=== PATIENT | male | born 1945 | race Caucasian/White ===

== ENCOUNTER 2016-07-05 12:57 | Emergency (ER) | payer MEDICARE, OTHER ==
[2016-07-05 13:22] VITALS: BP 139/79
[2016-07-05] MEDS ORDERED: Tetan/Diph/Pertus SYR(Tdap)* 0.5 ML SYR(BOOSTRIX) use SYR IM ONE (13:34)
--- NOTE | 2016-07-05 13:43 | UC ---
Laceration HPI - HPI Summary HPI Summary: LACERATION RIGHT INDEX FINGER X 2 HRS INJURY TO THE FINGER , GOT CUT ON A FAN + LACERATION AND BLEEDING AT THE TIP OF THE FINGER - History Of Current Complaint Chief Complaint: UCWounds Stated Complaint: RIGHT HAND POINTER FINGER INJURY Time Seen by Provider: 07/05/16 13:29 Hx Obtained From: Patient Laceration Location: Finger - RIGHT INDEX Mechanism Of Injury: Sharp Trauma Onset/Duration: Sudden Onset, Lasting Hours - 2, Still Present Severity: Moderate Aggravating Factors: Movement - Allergies/Home Medications Allergies/Adverse Reactions: Allergies Allergy/AdvReac Type Severity Reaction Status Date / Time No Known Allergies Allergy Verified 07/05/16 13:15 Home Medications: Home Medications Metoprolol Tartrate TAB* [Lopressor TAB*] 25 mg PO DAILY 07/05/16 [History Confirmed 07/05/16] Rosuvastatin (NF) [Crestor (NF)] 5 mg PO DAILY 07/05/16 [History Confirmed 07/05] PMH/Surg Hx/FS Hx/Imm Hx Previously Healthy: Yes - Surgical History Surgical History: Yes Surgery Procedure, Year, and Place: back surgery - Family History Known Family History: Negative: Diabetes - Social History Alcohol Use: Weekly Substance Use Type: None Smoking Status (MU): Never Smoked Tobacco - Immunization History Most Recent Tetanus Shot: ?2008 Review of Systems Constitutional: Negative Skin: Negative Eyes: Negative ENT: Negative Respiratory: Negative Cardiovascular: Negative All Other Systems Reviewed And Are Negative: Yes Physical Exam Triage Information Reviewed: Yes Appearance: Well-Appearing, No Pain Distress, Well-Nourished Vital Signs: Initial Vital Signs Temp 97.6 F 07/05/16 13:17 Pulse 52 07/05/16 13:17 Resp 18 07/05/16 13:17 BP 139/79 07/05/16 13:17 Pulse Ox 97 07/05/16 13:17 Vital Signs Reviewed: Yes Eye Exam: Normal Eyes: Positive: Conjunctiva Clear ENT: Positive: Normal ENT inspection, Hearing grossly normal, Pharynx normal Neck: Positive: Supple, Nontender, No Lymphadenopathy Respiratory: Positive: Chest non-tender, Lungs clear, Normal breath sounds Cardiovascular: Positive: RRR, No Murmur, Pulses Normal Skin: Positive: Other - LACERATION RIGHT FINGER DISTAL PHALANGS AT MULTIPLE SITE , CANNOT PLACE ANY SUTURE , WILL APPLY PRESSURE DRESSING TO STOP THE BLEEDING Laceration Course/Dx - Differential Dx - Laceration/Wound Provider Diagnoses: LACERATION RIGHT INDEX FINGER Discharge - Discharge Plan Condition: Stable Disposition: HOME Patient Education Materials: Finger Laceration (ED) Referrals: Keo Valle MD [Primary Care Provider] - Additional Instructions: FOLLOW UP IN 2 DAYS ON 07/07/16 AT THE URGENT CARE FOR WOUND CHECK AND DRESSING CHANGES
== END 2016-07-05 13:55 | disposition home or self-care (01) ==
LOC: UCCORT 12:57
DX: S61.210A Laceration without foreign body of right index finger without damage to nail, initial encounter (principal); W26.8XXA Contact with other sharp object(s), not elsewhere classified, initial encounter; Z23 Encounter for immunization
CPT/HCPCS: 90471; 90715; 99202; G0463

== ENCOUNTER 2016-07-07 07:24 | Emergency (ER) | payer MEDICARE, OTHER ==
[2016-07-07 07:35] VITALS: BP 130/76
--- NOTE | 2016-07-07 08:12 | UC ---
HPI Wound/Suture Re-check - HPI Summary HPI Summary: laceration right index finger x 2 days ago her for wound check and dressing changes no sutures were placed on last visit pt. has no complaints today , no bleeding, no discharge, + mild pain no fever, no chills , - History Of Current Complaint Chief Complaint: UCSkin Stated Complaint: RE CHECK FINGER WOUND Time Seen by Provider: 07/07/16 07:36 Hx Obtained From: Patient Onset/Duration: Sudden Onset, Lasting Days - 2, Still Present Severity: Moderate - Allergies/Home Medications Allergies/Adverse Reactions: Allergies Allergy/AdvReac Type Severity Reaction Status Date / Time No Known Allergies Allergy Verified 07/07/16 07:32 PMH/Surg Hx/FS Hx/Imm Hx Previously Healthy: Yes - Surgical History Surgical History: Yes Surgery Procedure, Year, and Place: back surgery - Family History Known Family History: Negative: Diabetes - Social History Alcohol Use: Weekly Substance Use Type: None Smoking Status (MU): Never Smoked Tobacco - Immunization History Most Recent Tetanus Shot: ?2008 Review of Systems Constitutional: Negative Skin: Negative Eyes: Negative ENT: Negative All Other Systems Reviewed And Are Negative: Yes Physical Exam Triage Information Reviewed: Yes Appearance: Well-Appearing, No Pain Distress, Well-Nourished Vital Signs: Initial Vital Signs Temp 98.9 F 07/07/16 07:32 Pulse 73 07/07/16 07:32 Resp 18 07/07/16 07:32 BP 130/76 07/07/16 07:32 Pulse Ox 95 07/07/16 07:32 Vital Signs Reviewed: Yes Eyes: Positive: Conjunctiva Clear ENT: Positive: Normal ENT inspection, Hearing grossly normal, Pharynx normal Neck: Positive: Supple, Nontender, No Lymphadenopathy Respiratory: Positive: Chest non-tender, Lungs clear, Normal breath sounds Cardiovascular: Positive: RRR, No Murmur, Pulses Normal Skin: Positive: Other - 1 cm laceration distal right index finger , healing well , no discharge, not bleeding, no significant erythema, + granulation tissue, mild tenderness Course/Dx - Differential Dx - Laceration/Wound Provider Diagnoses: laceration finger. wound check Discharge - Discharge Plan Condition: Stable Disposition: HOME Patient Education Materials: Acute Wound Care (ED) Referrals: Gonzalez Rodriguez MD [Primary Care Provider] - 7 Days
== END 2016-07-07 08:13 | disposition home or self-care (01) ==
LOC: UCCORT 07:24
DX: S61.310D Laceration without foreign body of right index finger with damage to nail, subsequent encounter (principal); X58.XXXD Exposure to other specified factors, subsequent encounter; Y92.9 Unspecified place or not applicable
CPT/HCPCS: 99211; G0463

== ENCOUNTER 2018-03-22 12:40 | Emergency (ER) | payer MEDICARE, OTHER ==
--- NOTE | 2018-03-22 13:35 | UC ---
Skin Complaint HPI - HPI Summary HPI Summary: 73 yo male presents with dog bite to right index finger. He tells me that he has a terrier dog at home that he has had for many years. He says that his dog is very territorial and yesterday he jumped on the bed - when pt went to get in bed, the dog snipped at his right hand and broke the skin of his right index finger. Since that time his finger has gotten red, swollen, and more painful. Unsure date of last tetanus. Denies numbness or tingling. - History of Current Complaint Time Seen by Provider: 03/22/18 13:34 Stated Complaint: DOG BITE RIGHT HAND Hx Obtained From: Patient Onset/Duration: Sudden Onset Onset Severity: Moderate Current Severity: Moderate Pain Intensity: 4 Pain Scale Used: 0-10 Numeric - Allergy/Home Medications Allergies/Adverse Reactions: Allergies Allergy/AdvReac Type Severity Reaction Status Date / Time No Known Allergies Allergy Verified 07/07/16 07:32 Home Medications: Home Medications Allopurinol TAB* [Zyloprim 100 MG TAB*] 1 each PO DAILY 03/22/18 [History Confirmed 03/22/18] Cholecalciferol TAB* [Vitamin D TAB*] 1 each PO DAILY 03/22/18 [History Confirmed 03/22/18] PMH/Surg Hx/FS Hx/Imm Hx - Additional Past Medical History Additional PMH: Gout Endocrine History: Dyslipidemia Cardiovascular History: Hypertension - Surgical History Surgical History: Yes Surgery Procedure, Year, and Place: back surgery - Family History Known Family History: Negative: Diabetes - Social History Occupation: Retired Lives: With Family Alcohol Use: Weekly Substance Use Type: None Smoking Status (MU): Never Smoked Tobacco - Immunization History Most Recent Tetanus Shot: ?2008 Review of Systems All Other Systems Reviewed And Are Negative: Yes Constitutional: Positive: Negative Skin: Positive: Other - Right index finger dog bite Respiratory: Positive: Negative Cardiovascular: Positive: Negative Neurovascular: Positive: Negative Musculoskeletal: Positive: Negative Neurological: Positive: Negative Psychological: Positive: Negative Physical Exam - Summary Physical Exam Summary: GENERAL: NAD. WDWN. No pain distress. SKIN: RIGHT INDEX FINGER: Puncture wound on dorsal aspect 2mm. Moderate edema and mild erythema. No drainage. CHEST: No accessory muscle use. Breathing comfortably and in no distress. CV: Pulses intact radial and ulnar. Cap refill <2seconds MSK: RIGHT INDEX FINGER: Mild decreased ROM at DIP and PIP due to swelling. NEURO: Alert. Sensations intact hand and all fingers. PSYCH: Age appropriate behavior. Triage Information Reviewed: Yes Vital Signs: Vital Signs: Temp Pulse Resp BP Pulse Ox 99.3 F 89 15 158/84 96 03/22/18 13:35 03/22/18 13:35 03/22/18 13:35 03/22/18 13:35 03/22/18 13:35 Vital Signs Reviewed: Yes Course/Dx - Course Course Of Treatment: tdap updated today. Rx for augmentin and advised to f/u if not improving within 2-3 days. - Diagnoses Provider Diagnosis: Infected dog bite of right index finger Discharge - Sign-Out/Discharge Documenting (check all that apply): Patient Departure All imaging exams completed and their final reports reviewed: No Studies - Discharge Plan Condition: Stable Disposition: HOME Prescriptions: Amoxicillin/Clavulanate TAB* [Augmentin TAB 875*] 875 mg PO BID #14 tab Patient Education Materials: Animal Bite (ED) Referrals: Enrico Montano MD [Primary Care Provider] - Additional Instructions: If you develop a fever, shortness of breath, chest pain, new or worsening symptoms - please call your PCP or go to the ED. Your blood pressure was high at todays visit. Please see your primary provider within 4 weeks for recheck and re-evaluation. Apply ice to your finger to reduce pain and swelling - Billing Disposition and Condition Condition: STABLE Disposition: Home
[2018-03-22 13:41] VITALS: BP 158/84
[2018-03-22] MEDS: Tetan/Diph/Pertus SYR(Tdap)* 0.5 ML SYR(BOOSTRIX) use SYR IM ONE (13:48)
== END 2018-03-22 13:49 | disposition home or self-care (01) ==
LOC: UCCORT 12:40
DX: S61.250A Open bite of right index finger without damage to nail, initial encounter (principal); L08.9 Local infection of the skin and subcutaneous tissue, unspecified; M10.9 Gout, unspecified; I10 Essential (primary) hypertension; Z79.899 Other long term (current) drug therapy; W54.0XXA Bitten by dog, initial encounter; Y92.008 Other place in unspecified non-institutional (private) residence as the place of occurrence of the external cause
CPT/HCPCS: 90715; 96372; 99212; G0463

== ENCOUNTER 2019-01-17 08:51 | Inpatient (IN) | payer MEDICARE, OTHER ==
[~2019-01-17 08:51] MED LIST: Buffered Lidocaine 1% SYRIN* 1 ML/SYRINGE INTRADERM ONE; Dexamethasone IV* 4 MG/ML 1 ML (4 MG) IV SLOW PU ONE; Dexamethasone IV* 4 MG/ML 1 ML (4 MG) ONE; Famotidine IV* 10 MG/ML 2 ML (20 mg) IV ONE; Famotidine IV* 10 MG/ML 2 ML (20 mg) ONE; Lactated Ringers 1000 ML Bag* 1,000 ML IV SCH; ceFAZolin 2 GM PREMIX in ORs 2 GM/50 ML BAG ONE
[2019-01-17] MEDS ORDERED: Bacitracin INJECTION* 50,000 UNITS ONE (10:51)
[2019-01-17] MEDS ORDERED: Lidocaine 1% w EPI 1:200,000* SDV 30 ML VIAL ONE (10:51)
[2019-01-17] MEDS ORDERED: Midazolam* 1 MG/ML 5 ML VIAL (5 MG) ONE (11:08)
[2019-01-17] MEDS ORDERED: fentaNYL* 50 MCG/ML 2 ML VIAL (100 MCG VIAL) ONE ×4 (11:08→16:17)
[2019-01-17] MEDS ORDERED: Remifentanil* 2 MG VIAL ONE ×2 (11:08→13:52)
[2019-01-17] MEDS ORDERED: Propofol* 10 MG/ML 20 ML BTL ONE (11:08)
[2019-01-17] MEDS ORDERED: Lidocaine 2% PF * 5 ML VIAL ONE (11:09)
[2019-01-17] MEDS ORDERED: oxyCODONE/Acetamin 5/325 MG* TAB PO PRN (11:28)
[2019-01-17] MEDS ORDERED: Naloxone* 0.4 MG/ML 1 ML VIAL IV PRN (11:28)
[2019-01-17] MEDS ORDERED: fentaNYL* 50 MCG/ML 2 ML VIAL (100 MCG VIAL) IV PRN (11:28)
[2019-01-17] MEDS ORDERED: HYDROcodone/ACETAMIN 5-325 MG* 1 TAB PO PRN ×3 (11:28→16:56)
[2019-01-17] MEDS ORDERED: DiMENhydriNATE IV* 50 MG/ML VIAL IV PUSH PRN (11:28)
[2019-01-17] MEDS ORDERED: Morphine 4 MG/ML VIAL (1 ml) 4 MG/ML VIAL IV PRN (11:28)
[2019-01-17] MEDS ORDERED: Rocuronium* 10 MG/ML VIAL ONE ×2 (11:33→13:23)
[2019-01-17] MEDS ORDERED: Propofol* 500 MG/50 ML BTL ONE (11:38)
[2019-01-17] MEDS ORDERED: Dexamethasone IV* 4 MG/ML 1 ML (4 MG) ONE (12:08)
[2019-01-17] MEDS ORDERED: Propofol* 1,500 MG/150 ML BTL ONE (12:11)
[2019-01-17] MEDS ORDERED: EPHEDrine (Pressors)* 50 MG/ML VIAL ONE (12:21)
[2019-01-17] MEDS ORDERED: Propofol* 1,000 MG/100 ML BTL ONE (15:09)
[2019-01-17] MEDS ORDERED: ceFAZolin 2 GM in NS PREMIX(*) 2 GM/100 ML BAG IVPB ONE (15:42)
[2019-01-17] MEDS ORDERED: Ondansetron INJ* 2 MG/ML VIAL ONE (15:51)
[2019-01-17] MEDS ORDERED: Acetaminophen TAB* 325 MG PO PRN (16:56)
[2019-01-17] MEDS ORDERED: Ondansetron INJ* 2 MG/ML VIAL IV PRN (16:56)
[2019-01-17] MEDS ORDERED: Magnesium Hydroxide LIQ* 30 ML UDC PO PRN (16:56)
[2019-01-17] MEDS ORDERED: Metoprolol Tartrate IV* 1 MG/ML 5 ML VIAL ONE (17:12)
[2019-01-17] MEDS ORDERED: Metoprolol Tartrate IV* 1 MG/ML 5 ML VIAL IV ONE (17:13)
[2019-01-17] MEDS ORDERED: Labetalol IV* 5 MG/ML 20 ML VIAL ONE (17:28)
[2019-01-17] MEDS: Labetalol IV* 5 MG/ML 20 ML VIAL IV PUSH PRN ×5 (17:36→18:26)
--- NOTE | 2019-01-17 22:52 | CONS ---
CC: Dr. Enrico Montano; Dr. Monet * CONSULTATION REPORT: DATE OF CONSULT: 01/17/19 TIME OF EVALUATION: 6:30 p.m. PRIMARY CARE PROVIDER: Dr. Enrico Montano. REQUESTING PHYSICIAN: Dr. Monet. HISTORY OF PRESENT ILLNESS: Mr. Kramer is a 74-year-old male with a past medical history of cervical spondylosis, hypertension, hyperlipidemia, gout, vitamin D deficiency, rheumatoid arthritis, who was referred to Dr. Monet by urology due to cervical myelopathy. He had back surgery in 2007 complicated with left foot drop and over the past year, he has experienced loss of strength and sensations on his left upper extremity. He was seen in consultation by Dr. Monet and his recommendation was for surgical repair in the way of an anterior cervical decompression with fusion of C5-6, C6-7, possible corpectomy of C5-6 with interbody cages. The patient was seen by his primary care provider and deemed stable for procedure and he was also referred to Cardiology prior to surgery for evaluation. He was seen by Dr. Sue and their impression was that the patient could proceed to cervical spinal surgery with low risk, and there was no indication for further testing or changes in medication. As per Dr. Monet, the patient did well during surgery and he requests that the hospitalist service follow for management of comorbidities. At the time of my evaluation, the patient was feeling well. He said that his pain was well controlled and he was able to move all 4 extremities. PAST MEDICAL HISTORY: 1. Hypertension. 2. Cervical spondylosis. 3. Hyperlipidemia. 4. Gout. 5. Vitamin D deficiency. 6. Rheumatoid arthritis. MEDICATIONS: 1. Allopurinol 100 mg p.o. daily. 2. Aspirin 81 mg p.o. daily. 3. Atorvastatin 40 mg p.o. daily. 4. Cholecalciferol 5000 units p.o. daily. 5. Losartan/hydrochlorothiazide 100/25 one tablet p.o. daily. 6. Metoprolol succinate 100 mg p.o. daily. ALLERGIES: No known drug allergies. FAMILY HISTORY: The patient states that his parents have . He does not remember exactly why. 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 Denies history of tobacco, alcohol, or drug use. Surrogate decision maker is his , Yanelis Kramer, phone number is [phone]. REVIEW OF SYSTEMS: A 14-point review of systems was performed and all the pertinent negatives and positive as per HPI. PHYSICAL EXAMINATION: General: The patient is an elderly gentleman lying in bed in no acute distress. Vital Signs: Temperature 97.4, heart rate is 96, respiratory rate 18, oxygen saturation 94% on room air, blood pressure is 151/ 83. HEENT: Pupils are equal. Moist mucous membranes. The patient has a Ravalli J collar in place. CVS: Normal S1, S2. Regular rate and rhythm. Chest: Breath sounds present bilaterally with no added sounds. Abdomen: Soft. Bowel sounds are present. Extremities: No edema. Neuro: The patient is alert and oriented x3. He is able to move all 4 extremities. He has a known left foot drop and this is unchanged. Sensation appears to be improved but the patient is still recovering from anesthesia during my evaluation. ASSESSMENT AND PLAN: Mr. Kramer is a 74-year-old male with a past medical history of hypertension, gout, hyperlipidemia, vitamin D deficiency, rheumatoid arthritis with cervical spondylosis, and spine myelopathy, who presented for an elective anterior cervical decompression that was performed by Dr. Monet. 1. Status post anterior cervical decompression. Postop management will be as per Neurosurgery. 2. Hypertension. His blood pressure is controlled. We will continue losartan , metoprolol and hydrochlorothiazide. 3. Hyperlipidemia. We will continue atorvastatin. 4. Vitamin D deficiency. We will continue cholecalciferol. 5. Gout. We will continue allopurinol. 6. DVT prophylaxis. The patient will have SCDs for now and we will resume his aspirin when okayed by Neurosurgery. 7. Code status is full. TIME SPENT: Approximately 45 minutes was spent with the patient interview, medical records review, and physical examination with admission. More than half of this time was spent [id number] with the patient in coordination of care. [id number]/[facility] #: [id number] VANDANA
[2019-01-18] MEDS ORDERED: NS 0.9% 500 ML* 500 ML IV ONE (00:25)
--- NOTE | 2019-01-18 00:58 | OP ---
DATE OF OPERATION: 01/17/19 - ROOM #351 DATE OF : 43 SURGEON: Conor Monet MD CURRICULUM WRITER: JOB Pitt. The case was done with the assistance of JOB because of the complexity of the case. ANESTHESIA: General. PRE-OP DIAGNOSES: 1. Degenerative disk disease. 2. Cervical spondylotic myelopathy. POST-OP DIAGNOSES: 1. Degenerative disk disease. 2. Cervical spondylotic myelopathy. OPERATIVE PROCEDURE: The patient underwent anterior cervical corpectomy at C6 with C5-C7 anterior arthrodesis with PEEK interbody cage, DBX, local bone graft , plate and screws with intraoperative monitoring. ESTIMATED BLOOD LOSS: 30 cc. COMPLICATIONS: None. SUMMARY: The patient is a very pleasant 74-year-old gentleman with cervical spondylotic myelopathy with MRI findings consistent with multilevel stenosis, more profound at C5-C6 and C6-7. He was offered the option of surgical intervention. After explaining the expectations, limitations, and possible complications of the procedure to the patient and his ; with complications including but not limited to bleeding, infection, risk of injury to adjacent structures, coma, paralysis, , need for additional procedures, anesthesia risks, risk of stroke, blindness, cancer, instability, hardware failure, adjacent level disease, pseudoarthrosis, spinal fluid leak, recurrent laryngeal nerve injury, injury to the esophagus or the trachea, need for tracheostomy or gastrostomy, need for prolonged ICU stay, anesthesia risks, Henrry syndrome, DVT , postoperative hematoma formation, need for additional procedures, the patient was agreeable to proceed with surgery and informed consent was obtained. The patient understood that he may require additional procedure in the future, possibly in the form of posterior C2 through T2 arthrodesis with decompression. The patient understood that his condition may not improve and in fact may get worse after surgery and that he may need to have additional procedures in the future. He also understood that the operative plan will be modified according to the intraoperative findings and conditions and that the case may be abandoned or done in more than 1 stages. The patient understood that he may require prolonged ICU stay, prolonged rehabilitation, and prolonged hospitalization. DESCRIPTION OF PROCEDURE: The patient was brought to the operating room and was placed under general anesthesia by the anesthesia team. He was carefully positioned supine on the Salbador table and all bony prominences were meticulously padded. His skin was prepped and draped in the standard fashion. After appropriate surgical pause and patient identification, a small right transverse paramedian incision was marked on the skin with assistance of intraoperative fluoroscopic imaging at the level of approximately C6. The skin was infiltrated with local anesthetic and a #10 surgical blade was used to anesthetize the skin. The incision was carried down to the subcutaneous tissue with Bovie cautery and the platysma was gently undermined with tenotomy scissors. Self-retaining retractors were introduced into the field. The platysma was then gently elevated and divided with tenotomy scissors and undermined. Self-retaining retractors were introduced further into the field. The plane between the medial border of the sternocleidomastoid and the medial structures was developed with sharp and blunt dissection. After identifying the prevertebral fascia and exposing of the anterior part of the spine, intraoperative fluoroscopic imaging was used to confirm the appropriate surgical levels. Self-retaining retractors were introduced further into the field and [place] pins were inserted into the C5, C6, and C7 vertebral body. Diskectomy at C5-C6 and C6-7 was performed after incising the annulus fibrosis with a #15 surgical blade. This was carried out with the use of pituitary rongeurs, Kerrison punches, and high-speed drill. It was noted that the patient had significant stenosis and because of the amount of vertebral body of C6 needed to be resected as well as the extent of the compression, it was decided to perform a corpectomy at C6 as discussed preoperatively. The corpectomy was carried out with series of [place] rongeurs, Kerrison punches, and high-speed drill. Significant adherence of the posterior wall of the vertebral body onto the posterior longitudinal ligament was found and it was gently dissected free. Intraoperative monitoring did not detect any changes. Then after extensive diskectomy was performed and extensive foraminotomies, a 22 mm corpectomy cage was prepared and was filled with locally harvesting bone graft during the diskectomy and corpectomy part of the procedure as well as DBX putty. The corpectomy cage was inserted and secured in place with an anterior cervical plate Zevo from [employer] was used. After fluoroscopic imaging was obtained, excellent placement of hardware was confirmed. A Darwin drain was left in place, which was tunneled through a separate stab wound incision. After meticulous hemostasis and copious irrigation, the self- retaining retractors were removed and the wound was closed by layers with 0- interrupted Vicryl sutures to approximate the platysma and then inverted, interrupted 2-0 Vicryl sutures to approximate the subcutaneous tissue. At the end of the procedure all counts were reported to be correct. The patient remained hemodynamically stable throughout the case. The skin was covered with Dermabond . At the end of the procedure, all counts were reported to be correct. The patient remained hemodynamically stable throughout the case. Intraoperative electrophysiological monitoring remained stable throughout the case. The patient was then extubated and was transferred to the Recovery in excellent condition. [id number]/[facility] #: [id number] MTDD
--- NOTE | 2019-01-18 08:32 | PN ---
Progress Note - Progress Note Date of Service: 01/18/19 SOAP: Subjective: [] No events ON. Tolerated procedure well yesterday. Not out of bed yet. Voids. Tolerates PO well. Wants to go home. Feels very well Objective: []VSS, Afebrile MJ Wound s,c,d Drain output noted. Drain was removed. Catheter appeared to be intact. No complications. Patient tolerated the procedure well. AAOx3, TYRONE, CN II-XII grossly intact Motor 5/5 all extremities except Lt foot drop, present preop. Sensory grossly intact to light touch, except decreased sensation LLE bellow knee, present preop. Assessment: []74 yom POD#1 Anterior cervical corpectomy C6 with C5-7 arthrodesis. Plan: []Monitor VS, Neurochecks Encourage ambulation Keep MJ collar on. C spine XR this am. DC planning today. Full instructions were given. No lifting, No bending, No driving. Keep incision dry. May shower in two days. No baths, Appreciate IM care. Mukund Monet MD
[2019-01-18] MEDS ORDERED: Allopurinol TAB* 100 MG PO SCH (09:00)
[2019-01-18] MEDS ORDERED: Atorvastatin* 40 MG TAB PO SCH (09:00)
[2019-01-18] MEDS ORDERED: Cholecalciferol TAB* 1000 UNITS PO SCH (09:00)
[2019-01-18] MEDS ORDERED: Metoprolol Succinate XL TAB* 100 MG PO SCH (09:00)
[2019-01-18] MEDS ORDERED: Losartan TAB* 25 MG PO SCH (09:00)
[2019-01-18] MEDS ORDERED: Hydrochlorothiazide TAB* 25 MG PO SCH (09:00)
[2019-01-18 17:38] VITALS: BP 152/85
--- NOTE | 2019-01-19 18:37 | DS ---
CC: Dr. Enrico Montano; Dr. Conor Monet * DISCHARGE SUMMARY: DATE OF ADMISSION: 01/17/19 DATE OF DISCHARGE: 01/18/19 PRIMARY CARE PROVIDER: Dr. Enrico Montano. MY ATTENDING WHILE IN THE HOSPITAL: Dr. Radha Cruz.* (DICTATED BY MIKE BUCIO) NEUROSURGEON: Dr. Conor Monet. PRIMARY DISCHARGE DIAGNOSIS: Cervical myelopathy due to cervical spinal stenosis, status post cervical decompression and fusion with corpectomy and interbody cages. SECONDARY DISCHARGE DIAGNOSES: 1. History of footdrop. 2. Hypertension. 3. Hyperlipidemia. 4. Gout. 5. Vitamin D deficiency. 6. Rheumatoid arthritis. STUDIES DONE WHILE IN THE HOSPITAL: Cervical spine x-ray from 01/18/19 read as postoperative changes related to C5-C7 ACDF, multilevel spondylosis. This represented appropriate alignment per Dr. Monet' impression. MEDICATIONS AT DISCHARGE: 1. Allopurinol 100 mg p.o. daily. 2. Losartan/hydrochlorothiazide 100/25 one tab p.o. daily. 3. Vitamin D3 5000 units p.o. daily. 4. Metoprolol succinate 100 mg p.o. daily. 5. Atorvastatin 40 mg p.o. daily. 6. Aspirin 81 mg p.o. daily. 7. Tylenol 650 mg p.o. q.4 hours as needed. 8. Dorothy 5/325 one tab p.o. q.4 hours as needed for moderate pain. 9. Dorothy 5/325 two tabs p.o. q.4 hours as needed for severe pain. HOSPITAL COURSE: This is a brief summary of the patient's presentation. For more details, please see the history and physical from Dr. Monet on as well as the consultation from Dr. Hetal Aleman on 01/17/19. In brief, the patient is a 74-year-old male with past medical history significant for the above, who presented for an elective surgical repair of his cervical spinal stenosis on 01/17/19, which was undertaken by Dr. Monet and went well without issues. The patient had minimal pain after the surgery. The patient had initially hypertension in the PACU, but this resolved with reintroduction of his blood pressure medications. The patient needed minimal pain medications. The patient was able to ambulate around the unit with only his previous footdrop and minimal pain and was able to eat regular diet and urinate without difficulty. The patient said he felt very well, he felt the surgery had gone well and was stable and amenable for discharge to home on 01/18/19. PHYSICAL EXAM ON THE DAY OF DISCHARGE: General: The patient is a 74-year-old male, who appears stated age and sitting comfortably in bed, in no acute distress. Vital Signs: Temperature 98.4, pulse rate 73, respiratory rate 16, oxygen saturation 94% on room air, blood pressure 152/85. HEENT: Head normocephalic, atraumatic. Sclerae anicteric. No conjunctival injection. Nasal mucosa moist. Oral mucosa moist. No pharyngeal erythema, discharge, or exudate. Neck: Supple, nontender. No lymphadenopathy. No carotid bruits auscultated. No JVD. Cardiac: Regular rate and rhythm. No clicks, murmurs, gallops, or rubs. Pulses are 2+ in the bilateral dorsalis pedis, posterior tibialis, and radial areas. Respiratory: Clear to auscultation bilaterally. No wheezes, rales, or rhonchi. Good air exchange bilaterally. Abdomen: Soft, nontender, nondistended. Bowel sounds present and normoactive in all 4 quadrants. No hepatosplenomegaly. No abdominal bruits auscultated. No hepatojugular reflux. Genitourinary: No suprapubic or CVA tenderness. Skin: Clean, dry, and intact. No rash. Surgical incision covered with dressing and not visualized. Neuro: Cranial nerves II through XII intact. His strength is preserved in bilateral upper extremities. Weakness with dorsiflexion on the left foot with muscle atrophy compared to the right foot. Abnormal foot slapping gait. No other focal deficits. Alert and oriented x3. Psychiatric: Pleasant and cooperative. DISCHARGE PLAN BY PROBLEM: 1. Cervical spinal stenosis, status post anterior spinal fusion. The patient has no obvious complications from surgery. The patient's pain is well controlled on the above regimen. The patient is feeling well. The patient is ambulating well. The patient will be maintained in his [place] collar until he is cleared by Neurosurgery. The patient should avoid bending, lifting, driving until cleared by his neurosurgeon. The patient should follow up with neurosurgeon in 7 to 10 days. The patient can shower in 2 days and take off the dressing at that time. The patient should avoid bath and try to keep the incision dry. The patient should return to the hospital for loss of bowel or bladder control, severe weakness, or other alarming symptoms. 2. Hypertension. The patient is currently normotensive. Continue the patient' s home regimen with hydrochlorothiazide, lisinopril, and metoprolol. 3. Gout. Continue the patient's allopurinol. 4. Hyperlipidemia. Continue the patient's Lipitor and aspirin for primary prevention. DISPOSITION: Home. CONDITION: Stable. TIME SPENT: Approximately 45 minutes was spent on the discharge of this patient , 30 of which was spent [id number] with the patient obtaining history and physical and discussing treatment plan. MIKE BUCIO [id number]/[place] #: [id number] VANDANA
== END 2019-01-18 17:30 | disposition home or self-care (01) | DRG 472 ==
LOC: OR 08:51 → SSU 16:57
PROVIDERS: ADMIT Neurological Surgery; ATTEND Internal Medicine
PROC: 0RB30ZZ Excision of Cervical Vertebral Disc, Open Approach (ICD-10-PCS; 2019-01-17)
PROC: 4A11X4G Monitoring of Peripheral Nervous Electrical Activity, Intraoperative, External Approach (ICD-10-PCS; 2019-01-17)
PROC: 0RG20A0 Fusion of 2 or more Cervical Vertebral Joints with Interbody Fusion Device, Anterior Approach, Anterior Column, Open Approach (ICD-10-PCS; principal; 2019-01-17 10:45)
DX: M48.02 Spinal stenosis, cervical region (principal); M47.12 Other spondylosis with myelopathy, cervical region; I10 Essential (primary) hypertension; E78.00 Pure hypercholesterolemia, unspecified; M21.372 Foot drop, left foot; M43.13 Spondylolisthesis, cervicothoracic region; E78.5 Hyperlipidemia, unspecified; G62.9 Polyneuropathy, unspecified; M10.9 Gout, unspecified; M06.9 Rheumatoid arthritis, unspecified; L25.9 Unspecified contact dermatitis, unspecified cause; I44.0 Atrioventricular block, first degree; E55.9 Vitamin D deficiency, unspecified; Z79.82 Long term (current) use of aspirin
CPT/HCPCS: 72040; 76000; A9270-GY; C1713; C1776; J0690; J1100; J2001; J2250; J2405; J2704; J3010; J3490

== ENCOUNTER 2019-04-12 09:05 | Emergency (ER) | payer MEDICARE, OTHER ==
--- OUTSIDE RECORDS SUMMARY | 2019-04-12 09:15 | XMS REPORT | Continuity of Care Document ---
:1945 External Reference #:[id number] Author Name Conor Monet MD (transmitted by agent of provider Deborah Daly ) Address [address] [place] [address] Care Team Providers Name Role Phone Enrico Montano MD - Family Medicine Care Team Information Critical Care Nurse Specialist [phone] Problems Active Problems Provider Date Skin sensation disturbance Ronald Kingsley M.D. Onset: 10/25/2018 Neck pain Ronald Kingsley M.D. Onset: 10/25/2018 Foot-drop Ronald Kingsley M.D. Onset: 10/25/2018 Social History Type Date Description Comments Sex Unknown ETOH Use Currently consumes alcohol Tobacco Use Start: Unknown Patient has never smoked Recreational Drug Use Never Used Drugs Smoking Status Reviewed: 02/20/19 Patient has never smoked Exercise Type/Frequency Exercises regularly Allergies, Adverse Reactions, Alerts Description No Known Drug Allergies Medications Active Medications SIG Qnty Indications Ordering Provider Date Ankle Foot Orthosis When out of bed as M47.12 Conor 01/26/2019 tolerated MD Chiki MJ Collar When out of bed M54.2 Vaseh 11/07/2018 MD Chiki Allopurinol 1 tab by mouth Unknown three times a day before meals [id number]-[id number] Ethyl Take One Capsule Unknown [place] By Mouth Twice A 1gm Capsules Day Metoprolol Succinate Take One Tablet By Unknown ER Mouth Every Day 100mg Tablets ER 24HR Atorvastatin Calcium Take One Tablet By Unknown Mouth Every Day as 40mg Tablets Directed Losartan 1 by mouth every Unknown Potassium/Hydrochloro day thiazide 100-25mg Tablets Medications Administered in Office Medication SIG Qnty Indications Ordering Provider Date Depomedrol 80MG Perri Granados M.D. 07/05/2013 Injection Immunizations Description No Information Available Vital Signs Date Vital Result Comment 02/20/2019 8:31am Height 69 inches 5'9" Weight 197.00 lb Heart Rate 60 /min BP Systolic 140 mmHg BP Diastolic 78 mmHg Body Temperature 97.0 F Pain Level 2 BMI (Body Mass Index) 29.1 kg/m2 01/26/2019 8:52am Height 69 inches 5'9" Weight 197.00 lb BP Systolic 122 mmHg BP Diastolic 84 mmHg BMI (Body Mass Index) 29.1 kg/m2 Results Test Acquired Date Facility Test Result H/L Range Note CBC No Diff 01/04/2019 [facility] White Blood 8.7 10^3/uL Normal 3.5-10.[address] [place] [address] [phone] Red Blood Count 4.79 10^6/uL Normal 4.18-5.48 Hemoglobin 15.1 g/dL Normal 14.0-18.0 Hematocrit 44 % Normal 42-52 Mean Corpuscular Volume 91 fL Normal 80-94 Mean Corpuscular Hemoglobin 32 pg High 27-31 Mean Corpuscular HGB Conc 35 g/dL Normal 31-36 Red Cell Distribution Width 13 % Normal 10-15 Platelet Count 205 10^3/uL Normal 150-450 Mean Platelet Volume 8.1 fL Normal 7.4-10.4 Basic Metabolic 01/04/2019 [facility] Sodium 134 mmol/L Low 135-[address] [place] [address] [phone] Potassium 4.3 mmol/L Normal 3.5-5.0 Chloride 101 mmol/L Normal 101-111 Co2 Carbon Dioxide 25 mmol/L Normal 22-32 Anion Gap 8 mmol/L Normal 2-11 Glucose 103 mg/dL High 70-100 Blood Urea Nitrogen 19 mg/dL Normal 6-24 Creatinine 1.13 mg/dL Normal 0.67-1.17 BUN/Creatinine Ratio 16.8 Normal 8-20 Calcium 9.6 mg/dL Normal 8.6-10.3 Egfr Non- 63.3 >60 Egfr 76.5 >60 1 Inr/Protime 01/04/2019 [facility] Inr 0.98 Normal 0.82-1.[address] [place] [address] [phone] Laboratory test 01/04/2019 [facility] Activated 31.9 Normal 26.0-38.[address] [place] [address] Thrombo Time [phone] Urinalysis 01/04/2019 [facility] Urine Color Straw Profile [address] [place] [address] [phone] Urine Appearance Clear Urine Specific [place] 1.005 Low 1.010-1.030 Urine pH 7.0 Normal 5-9 Urine Urobilinogen Negative Negative Urine Ketones Negative Negative Urine Protein Negative Negative Urine Leukocytes Negative Negative Urine Blood Negative Negative Urine Nitrite Negative Negative Urine Bilirubin Negative Negative Urine Glucose Negative Negative Type & Screen 01/04/2019 [facility] Patient Blood Type A Positive [address] [place] [address] [phone] Antibody Screen NEGATIVE 1 Because ethnic data is not always readily available, this report includes an eGFR for both -Americans and non- Americans. The National Kidney Disease Education Program (NKDEP) does not endorse the use of the MDRD equation for patients that are not between the ages of 18 and 70, are , have extremes of body size, muscle mass, or nutritional status, or are non- or non-. According to the National Kidney Foundation, irrespective of diagnosis, the stage of the disease is based on the level of kidney function: Stage Description GFR(mL/min/1.73 m(2)) 1 Kidney damage with normal or decreased GFR 90 2 Kidney damage with mild decrease in GFR 60-89 3 Moderate decrease in GFR 30-59 4 Severe decrease in GFR 15-29 5 Kidney failure <15 (or dialysis) 2 Standard intensity warfarin therapeutic range: 2.0-3.0 High intensity warfarin therapeutic range: 2.5-3.5 Procedures Date Code Description Status 01/17/2019 12003 Vertebral Corpectomy;Cervical, Single Segment Completed 01/17/2019 87490 Insertion Intervertebral Biomechanic Device Each Completed Contiguous Defec 01/17/2019 31451 Anterior Instrumentation 2-3 Vertebral Segments Completed 01/17/2019 85943 Arthrodesis W/M Completed 01/17/2019 44049 Arthrodesis, Anterior Cervical C2 And Below Completed 01/17/2019 Autograft For Spine Surgery (Incls Harvesting The Graft) Completed 01/17/2019 43291 Allograft For Spine Surgery, Morselized Completed 01/04/2019 33204 EKG, Interpretation Only Completed Medical Devices Description No Information Available Encounters Type Date Location Provider Dx Diagnosis Office Visit 01/18/2019 [facility] Michael Germain, M47.12 Other spondylosis 1:21p Assoc,santi [place] with myelopathy, Hospitalists cervical region I10 Essential (primary) hypertension E78.5 Hyperlipidemia, unspecified M10.9 Gout, unspecified Office Visit 01/17/2019 1:20p [facility] Hetal I10 Essential Assoc,santi Mendez M.D. (primary) Hospitalists hypertension E78.5 Hyperlipidemia, unspecified E55.9 Vitamin D deficiency, unspecified M10.9 Gout, unspecified Office Visit 11/21/2018 8:30a [place] Jian M54.2 Cervicalgia [facility]anie Mckeon N.P. M21.372 Foot drop, left foot M47.12 Other spondylosis with myelopathy, cervical region Office Visit 11/07/2018 11:30a [facility] M54.2 Cervical[facility] Monet MD M21.372 Foot drop, left foot M47.12 Other spondylosis with myelopathy, cervical region Office Visit 10/25/2018 [place] Ronald Kingsley, R20.2 Paresthesia of 9:00a Neurologic M.D. skin Services Of [facility] M62.81 Muscle weakness (generalized) M54.2 Cervicalgia M21.372 Foot drop, left foot Assessments Date Code Description Provider 02/20/2019 Z48.89 Encounter for other specified Conor Monet MD surgical aftercare 02/20/2019 M47.12 Other spondylosis with myelopathy, Conor Monet MD cervical region 01/26/2019 Z48.89 Encounter for other specified Conor Monet MD surgical aftercare 01/18/2019 M47.12 Other spondylosis with myelopathy, MIKE Stringer cervical region 01/18/2019 I10 Essential (primary) hypertension MIKE Stringer 01/18/2019 E78.5 Hyperlipidemia, unspecified MIKE Stringer 01/18/2019 M10.9 Gout, unspecified MIKE Stringer 01/17/2019 M48.02 Spinal stenosis, cervical region Conor Monet MD 01/17/2019 M47.12 Other spondylosis with myelopathy, Conor Monet MD cervical region 01/17/2019 I10 Essential (primary) hypertension Hetal Mendez M.D. 01/17/2019 E78.5 Hyperlipidemia, unspecified Hetal Mendez M.D. 01/17/2019 E55.9 Vitamin D deficiency, unspecified Hetal Mendez M.D. 01/17/2019 M10.9 Gout, unspecified Hetal Mendez M.D. 01/04/2019 R94.31 Abnormal electrocardiogram [ECG] Phill Beyer M.D., FACC, [EKG] [facility] 12/31/2018 M47.12 Other spondylosis with myelopathy, Conor Monet MD [facility] region 12/31/2018 M54.2 Cervicalgia Conor Monet MD 12/31/2018 M21.372 Foot drop, left foot Conor Monet MD 11/22/2018 M47.12 Other spondylosis with myelopathy, Conor Monet MD [facility] region 11/22/2018 M54.2 Cervicalgia Conor Monet MD 11/22/2018 M21.372 Foot drop, left foot Conor Monet MD 11/21/2018 M54.2 Cervicalgia Jian Mckeon, N.P. 11/21/2018 M21.372 Foot drop, left foot Jian Mckeon N.P. 11/21/2018 M47.12 Other spondylosis with myelopathy, Jian Mckeon N.P. cervical region 11/07/2018 M54.2 Cervicalgia Conor Monet MD 11/07/2018 M21.372 Foot drop, left foot Conor Monet MD 11/07/2018 M47.12 Other spondylosis with myelopathy, Conor Monet MD cervical region 10/25/2018 R20.2 Paresthesia of skin Ronald Kingsley M.D. 10/25/2018 M62.81 Muscle weakness (generalized) Ronald Kingsley M.D. 10/25/2018 M54.2 Cervicalgia Ronald Kingsley M.D. 10/25/2018 M21.372 Foot drop, left foot Ronald Kingsley M.D. Plan of Treatment Future Appointment(s):06/26/2019 8:00 am - Ronald Kingsley M.D. at [facility]04/19/2019 10:30 am - Conor Monet MD at Neurosurgery [facility]02/20/2019 - Conor Monet MDZ48.89 Encounter for other specified surgical xdcauqafzF77.12 Other spondylosis with myelopathy, cervical regionFollow up:RV in 2 months . Please obtain AP and Lateral XR today . Please obtain F/E views in 2 months Functional Status Description No Information Available Mental Status Description No Information Available Referrals Refer to Reason for Referral Status Appt Date Conor Monet MD Sent 11/07/[address] [place] [id number] [phone]
--- OUTSIDE RECORDS SUMMARY | 2019-04-12 09:15 | XMS REPORT | Continuity of Care Document ---
:1945 External Reference #:[id number] Author Name Enrico Montano MD Address [address] [place] [id number] Care Team Providers Name Role Phone Enrico Montano MD - Family Medicine Care Team Information Network Manager Problems Active Problems Provider Date Essential hypertension Lisseth La [facility] Onset: 10/02/2015 Hyperlipidemia Arlet Ruth M.D. Onset: 03/23/2016 Gout Arlet Ruth M.D. Onset: 03/23/2016 Taking medication Arlet Ruth M.D. Onset: 03/23/2016 Screening for malignant neoplasm of Arlet Ruth M.D. Onset: 03/23/2016 prostate Encounter for screening for Arlet Ruth M.D. Onset: 03/23/2016 nutritional disorder Vitamin D deficiency Arlet Ruth M.D. Onset: 04/08/2016 Immunization Arlet Ruth M.D. Onset: 10/27/2016 Contact dermatitis Arlet Ruth M.D. Onset: 10/27/2016 Cramp in lower leg associated with Arlet Ruth M.D. Onset: 07/19/2017 rest Low back pain Arlet Ruth M.D. Onset: 12/01/2017 First degree atrioventricular block Gregory Sue M.D., Onset: 2018 [facility] Encounter for other preprocedural Gregory Sue M.D., Onset: 2018 examination FACC Preoperative cardiovascular Gregory Sue M.D., Onset: 12/25/2018 examination [facility] Social History Type Date Description Comments Sex Unknown Tobacco Use Start: Unknown Never Smoked Cigarettes Smoking Status Reviewed: 04/08/19 Never Smoked Cigarettes ETOH Use consumes 2 six packs per week Tobacco Use Start: Unknown Patient denies history of smoking Recreational Drug Use Denies Drug Use Allergies, Adverse Reactions, Alerts Description No Known Drug Allergies Medications Active Medications SIG Qnty Indications Ordering Date Provider Losartan 1 by mouth every 90tabs Gregory Sue 12/25/2018 Potassium/Hydrochloro sue Smith M.D., [facility] thiazide 100-25mg Tablets Allopurinol 2 by mouth every 270tabs Enrico Montano MD 05/09/2018 100mg day Tablets Atorvastatin Calcium 1 tab by mouth 90tabs Enrioc Montano MD 05/08/2018 every day as 40mg Tablets directed Metoprolol Succinate 1 by mouth every 90tabs Enrico Montano MD 08/27/2015 ER day 100mg Tablets ER 24HR Aspir-81 1 by mouth every 90tabs Zachary Izaguirre, 08/27/2015 81mg Tablets day DO Vitamin D3 1 by mouth every Unknown 1000Unit day Capsules Immunizations CPT Code Status Date Vaccine Lot # [id number] Given 12/20/2018 Influenza High Dose [id number] Given 07/17/2018 Pneumovax Injection [id number] 35947 Given 11/23/2017 Influenza Virus Vaccine, Quadrivalent, 36 Mos+, .5ML [id number] Given 12/02/2015 Influenza Vaccine (Fluzone) Age 3 And Older [id number] Refused 10/27/2016 Influenza Virus Vaccine Quadrivalent [id number] Split Preser Free Id Vital Signs Date Vital Result Comment 04/08/2019 1:24pm BP Systolic 118 mmHg BP Diastolic 73 mmHg Body Temperature 97.0 F Heart Rate 57 /min Respiratory Rate 17 /min Height 69 inches 5'9" Weight 199.00 lb BMI (Body Mass Index) 29.4 kg/m2 BSA (Body Surface Area) 2.06 m2 [place] body weight in kilograms 73 kg O2 % BldC Oximetry 97 % 12/25/2018 11:10am BP Systolic Sitting Right Arm 170 mmHg BP Diastolic Sitting Right Arm 96 mmHg Heart Rate 62 /min Respiratory Rate 16 /min Height 69 inches 5'9" Weight 204.00 lb BMI (Body Mass Index) 30.1 kg/m2 BSA (Body Surface Area) 2.08 m2 [place] body weight in kilograms 73 kg O2 % BldC Oximetry 93 % ra Results Test Acquired Date Facility Test Result H/L Range Note CBC No Diff 01/04/2019 [facility] White Blood 8.7 10^ 3/uL Normal 3.5-10.8 [phone] Count Red Blood Count 4.79 10^6/uL Normal 4.18-5.48 Hemoglobin 15.1 g/dL Normal 14.0-18.0 Hematocrit 44 % Normal 42-52 Mean Corpuscular Volume 91 fL Normal 80-94 Mean Corpuscular Hemoglobin 32 pg High 27-31 Mean Corpuscular HGB Conc 35 g/dL Normal 31-36 Red Cell Distribution Width 13 % Normal 10-15 Platelet Count 205 10^3/uL Normal 150-450 Mean Platelet Volume 8.1 fL Normal 7.4-10.4 Basic Metabolic 01/04/2019 [facility] Sodium 134 mmol /L Low 135-145 Panel [phone] Potassium 4.3 mmol/L Normal 3.5-5.0 Chloride 101 mmol/L Normal 101-111 Co2 Carbon Dioxide 25 mmol/L Normal 22-32 Anion Gap 8 mmol/L Normal 2-11 Glucose 103 mg/dL High 70-100 Blood Urea Nitrogen 19 mg/dL Normal 6-24 Creatinine 1.13 mg/dL Normal 0.67-1.17 BUN/Creatinine Ratio 16.8 Normal 8-20 Calcium 9.6 mg/dL Normal 8.6-10.3 Egfr Non- 63.3 >60 Egfr 76.5 >60 1 Inr/Protime 01/04/2019 [facility] Inr 0.98 Normal 0.82-1.09 2 [phone] Laboratory test 01/04/2019 [facility] Activated 31.9 Normal 26.0-38.0 finding [phone] Partial seconds Thrombo Time Urinalysis 01/04/2019 [facility] Urine Color Straw Profile [phone] Urine Appearance Clear Urine Specific [place] 1.005 Low 1.010-1.030 Urine pH 7.0 Normal 5-9 Urine Urobilinogen Negative Negative Urine Ketones Negative Negative Urine Protein Negative Negative Urine Leukocytes Negative Negative Urine Blood Negative Negative Urine Nitrite Negative Negative Urine Bilirubin Negative Negative Urine Glucose Negative Negative Type & Screen 01/04/2019 [facility] Patient Blood A Positive [phone] Type Antibody Screen NEGATIVE CBC W/Automated 12/20/[address] [facility] [address] White Blood 6.0 K/uL Normal 3.4-10.[address] [place] [address] [phone] Red Blood Count 4.72 M/uL Normal 4.20-5.80 Hemoglobin 15.0 gm/dL Normal 12.8-17.0 Hematocrit 43.1 % Normal 38.0-48.0 Mean Cell Volume 91.3 fl Normal 80.0-96.0 Mean Corpuscular HGB 31.8 pg Normal 27.0-33.0 Mean Corpuscular HGB Conc 34.8 g/dL Normal 31.7-36.0 Platelet Count 208 K/uL Normal 155-360 Red Cell Distri Width SD 42.8 fl Normal 36-51 Red Cell Distri Width %CV 13.0 % Normal 11.6-15.8 Mean Platelet Volume 10.2 fl Normal 6.6-10.6 Neut% 53.3 % Normal 33.0-73.0 Lymph % 32.6 % Normal 20.0-42.0 [place] % 10.6 % High 0.0-10.0 Eo% 2.3 % Normal 0.0-6.6 Bas% 0.5 % Normal 0.0-1.1 Immature Grans 0.7 % Normal 0.0-5.0 NRBC % 0.0 /100WBC < 10/ 100 WBC Neut# 3.21 K/uL Normal 1.8-7.0 Lymph # 1.96 K/uL Normal 1.0-4.0 [place] # 0.64 K/uL Normal 0.0-0.8 Eos # 0.14 K/uL Normal 0.0-0.5 Baso # 0.03 K/uL Normal 0.0-0.1 Immature Grans Absolute 0.04 K/uL NRBC # 0.00 K/uL Comprehensive 12/20/2018 [facility] [address] Glucose 101 mg/dL Normal 74- 106 Metabolic Panel [address] [place], [place] [id number] [phone] BUN 16 mg/dL Normal 7-18 Creatinine 1.1 mg/dL Normal 0.6-1.3 Glom Filtration Rate, Estimate >60 mL/min >60 If >60 mL/min >60 4 BUN/Creat 14.5 ratio Sodium 136 mmol/L Normal 136-145 Potassium 4.0 mmol/L Normal 3.5-5.1 Chloride 106 mmol/L Normal 98-107 Carbon Dioxide 24 mmol/L Normal 21-32 Anion Gap 6 mEq/L Low 8-16 Calcium 8.8 mg/dL Normal 8.5-10.1 Total Protein 7.3 g/dL Normal 6.4-8.2 Albumin 4.1 g/dL Normal 3.4-5.0 Globulin 3.2 g/dL Normal 1.9-4.3 Alb/Glob 1.3 ratio Bilirubin,Total 1.0 mg/dL Normal 0.2-1.0 Sgot/Ast 19 U/L Normal 15-37 SGPT/Alt 38 U/L Normal 12-78 Alkaline Phosphatase 52 U/L Normal 45-117 1 Because ethnic data is not always [...] 2.0-3.0 High intensity warfarin therapeutic range: 2.5-3.5 3 Z01.818 4 Note: Persistent reduction for 3 months or more in an eGFR <60 mL/min/1.73 m2 defines CKD. Patients with eGFR values >/=60 mL/min/1.73 m2 may also have CKD if evidence of persistent proteinuria is present. The original MDRD equation for estimated GFR is not valid for patients less than 18 years of age. Additional information may be found at [email or web address]. Procedures Date Code Description Status 12/25/2018 87441 EKG-Tracing And Report Completed 12/20/2018 10293 EKG-Tracing And Report Completed Medical Devices Description No Information Available Encounters Type Date Location Provider Dx Diagnosis Office Visit 04/08/2019 Family Medicine Enrico Montano MD Z01.818 Encounter for other 1:30p Tyrese WERNER preprocedural examination Z79.899 Other termite technician (current) drug therapy Office Visit 12/25/2018 Cardiology Vikram Z01.810 Encounter for 11:00a Office Gregory Smith M.D., preprocedural [facility] cardiovascular examination I44.0 Atrioventricular block, first degree I10 Essential (primary) hypertension Office Visit 12/20/2018 9:50a Family Medicine Enrico Montano, Z01.818 Encounter for other Tyrese WERNER MD preprocedural examination I44.0 Atrioventricular block, first degree Z23 Encounter for immunization Z79.899 Other termite technician (current) drug therapy Assessments Date Code Description Provider 04/08/2019 Z01.818 Encounter for other preprocedural Enrico Montano MD examination 04/08/2019 Z79.899 Other termite technician (current) drug Enrico Montano MD therapy 12/25/2018 Z01.810 Encounter for preprocedural Gregory Sue M.D., cardiovascular examination [facility] 12/25/2018 I44.0 Atrioventricular block, first degree Gregory Sue M.D., [facility] 12/25/2018 I10 Essential (primary) hypertension Gregory Sue M.D., [facility] 12/20/2018 Z01.818 Encounter for other preprocedural Enrico Montano MD examination 12/20/2018 I44.0 Atrioventricular block, first degree Enrico Montano MD 12/20/2018 Z23 Encounter for immunization Enrico Montano MD 12/20/2018 Z79.899 Other termite technician (current) drug Enrico Montano MD therapy Plan of Treatment 04/08/2019 - Enrico Montano MDZ01.818 Encounter for other preprocedural [id number] Other longterm (current) drug therapyNew Labs:Comprehensive Metabolic Panel, Ordered: 04/08/19LDL Cholesterol Profile, Ordered: Uric Acid, Ordered: 04/08/19 Functional Status Functional Condition Comment Date Status Independent with all ADL's Active Glasses Active Mental Status Description No Information Available Referrals Refer to Reason for Referral Status Appt Date Gregory Sue MD FAC Closed 12/25/[address] [place] [address] [phone]
--- OUTSIDE RECORDS SUMMARY | 2019-04-12 09:15 | XMS REPORT | Continuity of Care Document ---
:1945 External Reference #:[id number] Author Name Enrico Montano MD (transmitted by agent of provider Sowmya Silvestre) Address [address] [place] [id number] Care Team Providers Name Role Phone Enrico Montano MD - Family Medicine Care Team Information Press Tender [phone] Problems Active Problems Provider Date Essential hypertension Lisseth La, [facility] Onset: 10/02/2015 Hyperlipidemia Arlet Ruth M.D. Onset: [...] atrioventricular block Gregory Sue M.D., Onset: 2018 [facility] Encounter for other preprocedural Gregory Sue M.D., Onset: 2018 examination FACC Preoperative cardiovascular Gregory Sue M.D., Onset: 12/25/2018 examination [facility] Social History Type Date Description Comments [...] mouth every 90tabs Gregory Sue 12/25/2018 Potassium/Hydrochloro day Seema Smith, [facility] thiazide 100-25mg Tablets Allopurinol 2 by mouth every 270tabs Enrico Montano MD 05/09/2018 100mg day Tablets Atorvastatin Calcium 1 tab by mouth 90tabs Enrico Montano MD 05/08/2018 every day as 40mg Tablets directed Metoprolol Succinate 1 by mouth every 90tabs Enrico Montano MD 08/27/2015 ER day 100mg Tablets ER 24HR Aspir-81 1 by mouth every 90tabs Zachary Izaguirre, 08/27/2015 81mg Tablets day DO Vitamin D3 1 by mouth every Unknown 1000Unit day Capsules Immunizations CPT Code Status Date Vaccine Lot # [id number] Given 12/20/2018 Influenza High Dose [id number] Given 07/17/2018 Pneumovax Injection [id number] 26505 Given 11/23/2017 Influenza Virus Vaccine, Quadrivalent, 36 Mos+, .5ML [id number] Given 12/02/2015 Influenza Vaccine (Fluzone) Age 3 And Older [address]994 Refused 10/27/2016 Influenza Virus Vaccine Quadrivalent Iiv4 Split Preser Free Id Vital Signs Date Vital Result Comment 04/08/2019 1:24pm BP Systolic 118 mmHg BP Diastolic 73 mmHg Body Temperature 97.0 F Heart Rate 57 /min Respiratory Rate 17 /min Height 69 inches 5'9" Weight 199.00 lb BMI (Body Mass Index) 29.4 kg/m2 BSA (Body Surface Area) 2.06 m2 [place] body weight in kilograms 73 kg O2 % BldC Oximetry 97 % 12/25/2018 11:10am BP Systolic Sitting Right Arm 170 mmHg BP Diastolic Sitting Right Arm 96 mmHg Heart Rate 62 /min Respiratory Rate 16 /min Height 69 inches 5'9" Weight 204.00 lb BMI (Body Mass Index) 30.1 kg/m2 BSA (Body Surface Area) 2.08 m2 [place] body weight in kilograms 73 kg O2 % BldC Oximetry 93 % ra Results Test Acquired Date Facility Test Result H/L Range Note CBC No Diff 01/04/2019 [facility] White Blood 8.7 10^ 3/uL Normal 3.5-10.8 [phone] Count Red Blood Count 4.79 10^6/uL Normal [...] 8.1 fL Normal 7.4-10.4 Basic Metabolic 01/04/2019 [facility] Sodium 134 mmol /L Low 135-145 Panel [phone] Potassium 4.3 mmol/L Normal 3.5-5.0 Chloride 101 mmol/L Normal 101-111 Co2 Carbon Dioxide 25 mmol/L Normal 22-32 Anion Gap 8 mmol/L Normal 2-11 Glucose 103 mg/dL High 70-100 Blood Urea Nitrogen 19 mg/dL Normal 6-24 Creatinine 1.13 mg/dL Normal 0.67-1.17 BUN/Creatinine Ratio 16.8 Normal 8-20 Calcium 9.6 mg/dL Normal 8.6-10.3 Egfr Non- 63.3 >60 Egfr 76.5 >60 1 Inr/Protime 01/04/2019 [facility] Inr 0.98 Normal 0.82-1.09 2 [phone] Laboratory test 01/04/2019 [facility] Activated 31.9 Normal 26.0-38.0 finding [phone] Partial seconds Thrombo Time Urinalysis 01/04/2019 [facility] Urine Color Straw Profile [phone] Urine Appearance Clear Urine Specific [place] 1.005 Low 1.010-1.030 Urine pH 7.0 Normal 5-9 Urine Urobilinogen Negative Negative Urine Ketones Negative Negative Urine Protein Negative Negative Urine Leukocytes Negative Negative Urine Blood Negative Negative Urine Nitrite Negative Negative Urine Bilirubin Negative Negative Urine Glucose Negative Negative Type & Screen 01/04/2019 [facility] Patient Blood A Positive [phone] Type Antibody Screen NEGATIVE CBC W/Automated 12/20/[address] [facility] [address] White Blood 6.0 K/uL Normal 3.4-10.5 [address] [place] [address] [phone] Red Blood Count 4.72 M/uL Normal 4.20-5.80 [...] 33.0-73.0 Lymph % 32.6 % Normal 20.0-42.0 [place] % 10.6 % High 0.0-10.0 Eo% 2.3 % Normal 0.0-6.6 Bas% 0.5 % Normal 0.0-1.1 Immature Grans 0.7 % Normal 0.0-5.0 NRBC % 0.0 /100WBC < 10/ 100 WBC Neut# 3.21 K/uL Normal 1.8-7.0 Lymph # 1.96 K/uL Normal 1.0-4.0 [place] # 0.64 K/uL Normal 0.0-0.8 Eos # 0.14 K/uL Normal 0.0-0.5 Baso # 0.03 K/uL Normal 0.0-0.1 Immature Grans Absolute 0.04 K/uL NRBC # 0.00 K/uL Comprehensive 12/20/[address] [facility] [address] Glucose 101 mg/dL Normal 74- 106 Metabolic Panel [address] [place], [place] [address] [phone] BUN 16 mg/dL Normal 7-18 Creatinine 1.1 [...] [email or web address]. Procedures Date Code Description Status 12/25/2018 11072 EKG-Tracing And Report Completed 12/20/2018 94921 EKG-Tracing And Report Completed Medical Devices Description No Information Available Encounters Type Date Location Provider Dx Diagnosis Office Visit 04/08/2019 Family Medicine Enrico Montano MD Z01.818 Encounter for other 1:30p Tyrese WERNER preprocedural examination Z79.899 Other superintendent terminal (current) drug therapy Office Visit 12/25/2018 Cardiology Vikram Z01.810 Encounter for 11:00a Office Gregory Smith M.D., preprocedural [facility] cardiovascular examination I44.0 Atrioventricular block, first degree I10 Essential (primary) hypertension Office Visit 12/20/2018 9:50a Family Medicine Enrico Montano, Z01.818 Encounter for other Tyrese WERNER MD preprocedural examination I44.0 Atrioventricular block, first degree Z23 Encounter for immunization Z79.899 Other fpc (current) drug therapy Assessments Date Code Description Provider 04/08/2019 Z01.818 Encounter for other preprocedural Enrico Montano MD examination 04/08/2019 Z79.899 Other superintendent terminal (current) drug Enrico Montano MD therapy 12/25/2018 Z01.810 Encounter for preprocedural Gregory Sue M.D., cardiovascular examination [facility] 12/25/2018 I44.0 Atrioventricular block, first degree Gregory Sue M.D., [facility] 12/25/2018 I10 Essential (primary) hypertension Gregory Sue M.D., [facility] 12/20/2018 Z01.818 Encounter for other preprocedural Enrico Montano MD examination 12/20/2018 I44.0 Atrioventricular block, first degree Enrico Montano MD 12/20/2018 Z23 Encounter for immunization Enrico Montano MD 12/20/2018 Z79.899 Other superintendent terminal (current) drug Enrico Montano MD therapy Plan of Treatment 04/08/2019 - Enrico Montano MDZ01.818 Encounter for other preprocedural [id number] Other fpc (current) drug therapyNew Labs:Comprehensive Metabolic Panel, Ordered: 04/08/19LDL Cholesterol Profile, Ordered: Uric Acid, Ordered: 04/08/19 Functional Status Functional Condition Comment Date Status Independent with all ADL's Active Glasses Active Mental Status Description No Information Available Referrals Refer to Reason for Referral Status Appt Date Gregory Sue MD FAC Closed 12/25/[address] [place], [place] [id number] [phone]
[2019-04-12 10:48] VITALS: BP 157/77
--- NOTE | 2019-04-12 10:53 | ED ---
Neck Pain - HPI Summary HPI Summary: Patient presents to the ED with request by surgeon, Dr. Monet for a recent cervical spine x-ray revealing anterior displacement of C7 fixation. Patient is denying any pain, shortness of breath, chest pain, headache. Patient has had no sxs x 3 mos and has been wearing collar x 3 months since surgery. He does admit to taking the collar off intermittently over the past few weeks as he has felt "fine." Wears all the time at bedtime. - History of Current Complaint Chief Complaint: EDNeckComplaint Stated Complaint: NECK INJURY Time Seen by Provider: 04/12/19 09:24 Hx Obtained From: Patient Pain Intensity: 0 Pain Scale Used: 0-10 Numeric - Allergies/Home Medications Allergies/Adverse Reactions: Allergies Allergy/AdvReac Type Severity Reaction Status Date / Time No Known Allergies Allergy Verified 04/12/19 09:10 Home Medications: Home Medications Allopurinol TAB* [Zyloprim 100 MG TAB*] 1 each PO QAM 03/22/18 [History Confirmed 04/12/19] Aspirin [Aspir-Low] 81 mg PO QAM 01/04/19 [History Confirmed 04/12/19] Atorvastatin* [Lipitor 40 MG*] 40 mg PO QAM 01/04/19 [History Confirmed 04/12/19 ] Cholecalciferol CAP/TAB(NF) [Vitamin D3 CAP/TAB (NF)] 5,000 unit PO QAM [History Confirmed 04/12/19] Losartan/Hydrochlorothiazide [Losartan-Hctz 100-25 mg Tab] 1 tab PO QAM [History Confirmed 04/12/19] Metoprolol Succinate 100 mg PO QAM 01/04/19 [History Confirmed 04/12/19] Naproxen Sodium [Aleve] 1 - 2 cap PO BID PRN 04/12/19 [History Confirmed ] PMH/Surg Hx/FS Hx/Imm Hx Previously Healthy: Yes Endocrine/Hematology History: Denies: Hx Diabetes Cardiovascular History: Reports: Hx Hypertension Denies: Hx Pacemaker/ICD History: Denies: Hx Renal Disease Musculoskeletal History: Reports: Hx Arthritis Sensory History: Reports: Hx Cataracts - both eyes, Hx Contacts or Glasses - glasses Denies: Hx Hearing Aid Opthamlomology History: Reports: Hx Cataracts - both eyes, Hx Contacts or Glasses - glasses Psychiatric History: Denies: Hx Panic Disorder - Cancer History Hx Chemotherapy: No - Surgical History Surgery Procedure, Year, and Place: back surgery-LOWER BACK. LASER SURGERY LEFT EYE Hx Anesthesia Reactions: No - Immunization History Hx Pertussis Vaccination: No Immunizations Up to Date: Yes Infectious Disease History: No Infectious Disease History: Denies: Traveled Outside the [place] in Last 30 Days - Family History Known Family History: Negative: Diabetes - Social History Occupation: Unemployed Lives: With Family Alcohol Use: Every other day Alcohol Amount: 7 Hx Substance Use: No Substance Use Type: Reports: None Hx Tobacco Use: No Smoking Status (MU): Never Smoked Tobacco Review of Systems Negative: Fever, Chills, Fatigue, Skin Diaphoresis Negative: Palpitations, Chest Pain Negative: Shortness Of Breath, Cough Genitourinary: Negative Positive: no symptoms reported, see HPI Negative: Arthralgia, Myalgia Negative: Headache, Weakness, Paresthesia, Syncope, Slurred Speech Psychological: Normal All Other Systems Reviewed And Are Negative: Yes Physical Exam Triage Information Reviewed: Yes Vital Signs On Initial Exam: Initial Vitals Temp Pulse Resp BP Pulse Ox 97.8 F 65 16 148/119 99 04/12/19 09:07 04/12/19 09:07 04/12/19 09:07 04/12/19 09:07 04/12/19 09:07 Vital Signs Reviewed: Yes Appearance: Positive: Well-Appearing, Well-Nourished Skin: Positive: Warm, Skin Color Reflects Adequate Perfusion Head/Face: Positive: Normal Head/Face Inspection Eyes: Positive: EOMI, TYRONE, Conjunctiva Clear Respiratory/Lung Sounds: Positive: Clear to Auscultation, Breath Sounds Present Cardiovascular: Positive: Pulses are Symmetrical in both Upper and Lower Extremities Musculoskeletal: Positive: Normal, Strength/ROM Intact Neurological: Positive: Speech Normal Psychiatric: Positive: Normal, Affect/Mood Appropriate AVPU Assessment: Alert Procedures - Sedation Patient Received Moderate/Deep Sedation with Procedure: No Diagnostics - Vital Signs Vital Signs Temp Pulse Resp BP Pulse Ox 04/12/19 10:47 97.9 F 64 16 157/77 96 04/12/19 09:07 97.8 F 65 16 148/119 99 - Laboratory Lab Statement: Any lab studies that have been ordered have been reviewed, and results considered in the medical decision making process. Neck Course/Dx - Course Course Of Treatment: Pt arrives to the ED d/t request of Dr. Barksdale as recent cervical spine x-rays revealed anterior displacement of the C7 fixation. Patient denies any pain, SOB, CP, RICCI, etc. Discussed with Dr. Barksdale. Recommended admission to hospital for observation, CT and likely surgery for Monday. Pt refused further treatments and admission to the hospital at this time and any recommendations made by myself and Dr. Barksdale and has decided to leave against medical advice. All risks and benefits of leaving AMA were explained and provided in writing to the patient. Patient signed appropriate documentation and this was witnessed by the nurse, Savi and myself. They have normal mental status and adequate capacity to make medical decisions. is at bedside who also signed AMA form. The risks have been explained to the patient, including worsening illness, chronic pain, esophageal involvement, shortness of breath or airway compromise, permanent disability and . - Diagnoses Differential Dx/HQI/PQRI: Positive: Cervical Fracture, Other - fixation displacement Provider Diagnoses: Cervical spine instability Discharge ED - Sign-Out/Discharge Documenting (check all that apply): Patient Departure - Discharge Plan Condition: Stable Disposition: AGAINST MEDICAL ADVICE Referrals: Enrico Montano MD [Primary Care Provider] - Additional Instructions: Please follow up with Dr. Barksdale's office first thing Monday morning If you have ANY COMPLICATIONS - unable to swallow, pain, difficulty breathing, etc - please return to the ED immediately - Billing Disposition and Condition Condition: STABLE Disposition: Against Medical Advice
== END 2019-04-12 10:47 | disposition left against medical advice (07) ==
LOC: ED 09:05
DX: M53.2X2 Spinal instabilities, cervical region (principal); I10 Essential (primary) hypertension; Z79.82 Long term (current) use of aspirin; Z79.899 Other long term (current) drug therapy
CPT/HCPCS: 72040; 99282

== ENCOUNTER 2019-04-15 18:41 | Inpatient (IN) | payer MEDICARE, OTHER ==
--- NOTE | 2019-04-15 23:28 | ED ---
Complex/Multi-Sys Presentation - HPI Summary HPI Summary: Patient is a 74 y/o M who presents to [facility] stating that he was instructed to come to [facility] for admission and revision surgery by Dr. Monet. On 01/17/19, per surgery report, the patient had an "anterior cervical corpectomy at C6 with C5-C7 anterior arthrodesis with PEEK interbody cage, DBX, local bone graft, plate and screws with intraoperative monitoring". The patient had a cervical spine x-ray on 04/11/19 which revealed: 1. STATUS POST ANTERIOR CERVICAL FUSION. 2. THERE HAS BEEN ANTERIOR DISPLACEMENT OF THE INFERIOR FIXATION SCREW AT C7 WITH VOLUME LOSS OF THE C6 VERTEBRAL BODY. The patient was informed about this finding and was advised to come to [facility] for admission. Patient came to [facility] on and was evaluated. Dr. Monet recommended that the patient be admitted to [facility] with corrective surgery in the next few days. However, the patient did not want to stay in the hospital and await surgery, patient signed out AMA. Patient was instructed to follow-up with Chiki Bush' office today. Nurse from Dr. Monet office relayed that Dr. Monet wanted the patient to go back to [facility] to be admitted with the plan to have the patient undergo surgery tomorrow. Patient denies having experienced pain, difficulty swallowing , and SOB. PMHx of HTN, HLD, herniated discs noted. PSHx of back surgery reported as well. NKDA noted. He is a non-smoker, notes some alcohol usage, and denies substance usage. FMHx of CA and cardiac disease is claimed. Home medications and allergies are reviewed. - History Of Current Complaint Chief Complaint: EDGeneral Time Seen by Provider: 04/15/19 23:23 Hx Obtained From: Patient Onset/Duration: Still Present Timing: Constant Severity Currently: None Associated Signs And Symptoms: Positive: Other - negative - difficulty swallowing, pain. Negative: SOB - Allergies/Home Medications Allergies/Adverse Reactions: Allergies Allergy/AdvReac Type Severity Reaction Status Date / Time No Known Allergies Allergy Verified 04/15/19 23:48 Home Medications: Home Medications Allopurinol TAB* [Zyloprim 100 MG TAB*] 1 each PO QAM 03/22/18 [History Confirmed 04/15/19] Aspirin [Aspir-Low] 81 mg PO QAM 01/04/19 [History Confirmed 04/15/19] Atorvastatin* [Lipitor 40 MG*] 40 mg PO QAM 01/04/19 [History Confirmed 04/15/19 ] Cholecalciferol CAP/TAB(NF) [Vitamin D3 CAP/TAB (NF)] 5,000 unit PO QAM [History Confirmed 04/15/19] Losartan/Hydrochlorothiazide [Losartan-Hctz 100-25 mg Tab] 1 tab PO QAM [History Confirmed 04/15/19] Metoprolol Succinate 100 mg PO QAM 01/04/19 [History Confirmed 04/15/19] Naproxen Sodium [Aleve] 1 - 2 cap PO BID PRN 04/12/19 [History Confirmed ] PMH/Surg Hx/FS Hx/Imm Hx Endocrine/Hematology History: Denies: Hx Diabetes Cardiovascular History: Reports: Hx Hypercholesterolemia, Hx Hypertension Denies: Hx Pacemaker/ICD History: Denies: Hx Renal Disease Musculoskeletal History: Reports: Hx Arthritis Sensory History: Reports: Hx Cataracts - both eyes, Hx Contacts or Glasses - glasses Denies: Hx Hearing Aid Opthamlomology History: Reports: Hx Cataracts - both eyes, Hx Contacts or Glasses - glasses Psychiatric History: Denies: Hx Panic Disorder - Cancer History Hx Chemotherapy: No - Surgical History Surgery Procedure, Year, and Place: back surgery-LOWER BACK. LASER SURGERY LEFT EYE Hx Anesthesia Reactions: No Infectious Disease History: No Infectious Disease History: Denies: Traveled Outside the [place] in Last 30 Days - Family History Known Family History: Positive: Cardiac Disease, Other - CA Negative: Diabetes - Social History Alcohol Use: Every other day Alcohol Amount: 7 Hx Substance Use: No Substance Use Type: Reports: None Hx Tobacco Use: No Smoking Status (MU): Never Smoked Tobacco - Additional Comments History Additional Comments: Patient reports: PMHx of HTN, HLD, herniated discs PSHx of back and neck surgery FMHx of CA and cardiac disease Review of Systems - ROS Summary Review of Systems Summary: Home Medications Medication Instructions Recorded Confirmed Type Allopurinol TAB* [Zyloprim 100 MG 1 each PO QAM 03/22/18 04/15/19 History TAB*] Aspirin [Aspir-Low] 81 mg PO QAM 01/04/19 04/15/19 History Atorvastatin* [Lipitor 40 MG*] 40 mg PO QAM 01/04/19 04/15/19 History Cholecalciferol CAP/TAB(NF) 5,000 unit PO QAM 01/04/19 04/15/19 History [Vitamin D3 CAP/TAB (NF)] Losartan/Hydrochlorothiazide 1 tab PO QAM 01/04/19 04/15/19 History [Losartan-Hctz 100-25 mg Tab] Metoprolol Succinate 100 mg PO QAM 01/04/19 04/15/19 History Naproxen Sodium [Aleve] 1 - 2 cap PO BID PRN 04/12/19 04/15/19 History ENT: Other - negative - difficulty swallowing Negative: Shortness Of Breath Negative: Myalgia All Other Systems Reviewed And Are Negative: Yes Physical Exam - Summary Physical Exam Summary: General: Well-developed, Well-nourished male. No acute distress. HEENT: Normocephalic, Atraumatic. Eyes: Conjuctiva normal, PERRL. Oropharynx: Clear, mucous membranes moist, (-) exudates. Neck: Soft, FROM, (-) lymphadenopathy, (-) thyromegaly, (-) JVD. Cardiovascular: Normal sinus rhythm, (-) murmur. Lungs: Clear to auscultation bilaterally (-) wheezes, (-) rales, (-) rhonchi. Abdomen: Soft, non-tender, non-distended, (-) organomegaly, normal bowel sounds. Back: (-) CVA tenderness Extremities: No edema. Skin: Warm, dry, (-) rash. Neuro: Alert and oriented x3, moves all extremities equally. No ataxia. No gait disturbance. No sensory deficit. Normal strength, normal sensation. Psychiatric: Mood normal, affect normal. Triage Information Reviewed: Yes Vital Signs On Initial Exam: Initial Vitals Temp Pulse Resp BP Pulse Ox 98.3 F 76 16 160/96 97 04/15/19 18:44 04/15/19 18:44 04/15/19 18:44 04/15/19 18:44 04/15/19 18:44 Vital Signs Reviewed: Yes Procedures - Sedation Patient Received Moderate/Deep Sedation with Procedure: No Diagnostics - Vital Signs Vital Signs Temp Pulse Resp BP Pulse Ox 04/15/19 20:53 98.6 F 65 16 142/82 97 04/15/19 18:44 98.3 F 76 16 160/96 97 - Laboratory Result Diagrams: 04/18/19 14:04 04/18/19 14:04 Lab Statement: Any lab studies that have been ordered have been reviewed, and results considered in the medical decision making process. - Radiology CERVICAL SPINE X-RAY Radiology Interpretation Completed By: ED Physician Summary of Radiographic Findings: Anterior displacement of the inferior fixation screw, unchanged from prior cervical spine x-ray CXR Radiology Interpretation Completed By: ED Physician Summary of Radiographic Findings: No acute process, pending official report. - EKG 0111 Cardiac Rate: NL - rate of 70 BPM EKG Rhythm: Sinus Rhythm Summary of EKG Findings: EKG reveals normal sinus rhythm with rate of 70 BPM, no acute changes, no ischemic changes. This EKG was reviewed and interpreted by Dr. Rendon. Complex Multi-Symp Course/Dx Course Of Treatment: 74-year-old male presents for admission for neck surgery tomorrow. According to patient he was seen here on Monday. Was advised to come in by neurosurgery. He had cervical spinal surgery in January. Follow- up demonstrated movement of one of the screws. Dr. Lewis was out of town for the weekend. However when patient called his office this morning he was called back and advised to come in tonight for admission for surgery tomorrow. This was confirmed with Dr. Lewis. Patient is asymptomatic at this time. He does have a collar in place upon arrival. No significant physical findings are noted. Patient has a workup ordered for preop. Referred to hospitalist for admission. - Diagnoses Provider Diagnoses: Complication, postoperative, History of neck surgery - Physician Notifications Discussed Care Of Patient With: Conor Monet Time Discussed With Above Provider: 00:01 Instructed by Provider To: Other - Patient's case was discussed with Dr. Monet, EKG, CXR, CBC, CMP to be obtained. Patient to be admitted and placed NPO after midnight with surgery tomorrow. 0025 - Patient's case was discussed with Dr. Arias, Dr. Arias accepts for admission. Discharge ED - Sign-Out/Discharge Documenting (check all that apply): Patient Departure - admit - Discharge Plan Condition: Stable Disposition: ADMITTED TO [facility] - Billing Disposition and Condition Condition: STABLE Disposition: Admitted to [facility] - Attestation Statements Document Initiated by Scribe: Yes Documenting Scribe: VIV GLEZ Provider For Whom Trudi is Documenting (Include Credential): BECKY RENDON MD Scribe Attestation: VIV Paez, scribed for BECKY RENDON MD on 04/20/19 at 0413. Scribe Documentation Reviewed: Yes Provider Attestation: The documentation as recorded by the VIV ramirez accurately reflects the service I personally performed and the decisions made by me, BECKY RENDON MD Status of Scribe Document: Viewed
[2019-04-16] MEDS ORDERED: NS 0.9% 1000 ML** 1,000 ML IV SCH ×2 (00:15→02:30)
[2019-04-16 00:43] LABS: ABS Eosinophils 0.2 10^3/ul (0-0.6); ABS Monocytes 0.5 10^3/ul (0-0.8); ABS Neutrophils 3.4 10^3/ul (1.5-7.7); Eosinophil % 2.9 %; Hematocrit 39 % (42-52); Hemoglobin 13.4 g/dL (14.0-18.0); Lymphocyte % 32.7 %; Mean Corpuscular HGB Conc 34 g/dL (31-36); Mean Corpuscular Hemoglobin 31 pg (27-31); Mean Corpuscular Volume 90 fL (80-94); Mean Platelet Volume 7.7 fL (7.4-10.4); Platelet Count 205 10^3/uL (150-450); Red Blood Count 4.36 10^6 /uL (4.18-5.48); Red Cell Distribution Width 15 % (10-15); White Blood Count 6.1 10^3/uL (3.5-10.8)
[2019-04-16 00:44] LABS: INR 1.06 (0.82-1.09)
[2019-04-16 00:56] LABS: Albumin 4.3 g/dL (3.2-5.2); Albumin/Globulin Ratio 1.6 (1-3); BUN/Creatinine Ratio 19.1 (8-20); Calcium 9.6 mg/dL (8.6-10.3); Globulin 2.7 g/dL (2-4); Potassium 3.6 mmol/L (3.5-5.0); Total Bilirubin 0.7 mg/dL (0.2-1.0)
[2019-04-16] MEDS ORDERED: Ondansetron INJ* 2 MG/ML VIAL IV PRN ×2 (02:24→19:24)
[2019-04-16] MEDS ORDERED: Acetaminophen TAB* 325 MG PO PRN (02:24)
--- NOTE | 2019-04-16 05:19 | HP ---
CC: Dr. Montano; Dr. Monet * HISTORY AND PHYSICAL: DATE OF ADMISSION: 04/16/19 PRIMARY CARE PROVIDER: Dr. Montano. MY ATTENDING PHYSICIAN WHILE IN THE HOSPITAL: Dr. Arias * (report dictated by Connie Mckeon NP). CONSULTING NEUROSURGEON: Dr. Monet. CHIEF COMPLAINT: Loosening of hardware. HISTORY OF PRESENT ILLNESS: Mr. Kramer is a 74-year-old male patient with a known history of cervical myelopathy. He does have a chronic left foot drop. He was found to have severe spinal stenosis and myelomalacia and underwent an anterior cervical decompression in January. The patient was following up with Dr. Monet. He had had a cervical spine x-ray this past Monday and it was noted that he had a displacement of the anterior inferior fixation screw at C7. The patient was instructed to come to the ER on Monday, he did and ultimately signed out against medical advice as the patient felt that he was not going to have surgery until the following week on 04/16/19. He did not want to stay in the hospital for 4 days. The patient touch based with Dr. Monet again today and was again referred to the hospital given the loosening of the hardware. The patient states that he had been wearing his [place]-J throughout the weekend. He had been feeling fine. He states he has not had any worsening weakness of the upper extremities, no new weakness in the lower extremities. Denies having any new paresthesias. There was obvious concern because of the loosening of the hardware and he was referred again to the hospital by the Neurosurgery for fixation and revision. Because of this, we were asked to evaluate for admission. PAST MEDICAL HISTORY: Significant for: 1. Hypertension. 2. Cervical spinal stenosis. 3. Hyperlipidemia. 4. Gout. 5. Vitamin D deficiency. 6. Rheumatoid arthritis. PAST SURGICAL HISTORY: 1. He has had an anterior cervical decompression. 2. Lumbar surgery as well. MEDICATIONS: Home meds according the patient included: 1. Atorvastatin 40 mg daily. 2. Aspirin 81 mg daily. 3. Allopurinol 1 tablet daily. 4. Aleve 1 to 2 capsules p.o. b.i.d. as needed. 5. Metoprolol succinate 100 mg daily. 5. Losartan/hydrochlorothiazide 1 tablet daily. 6. Vitamin D3 5000 units p.o. q.a.m. ALLERGIES TO MEDICATIONS: Include no known drug allergies. FAMILY HISTORY: His mother had an IA. Father had skin cancer, melanoma. Mother also had cancer. SOCIAL HISTORY: He does not smoke. He occasionally drinks alcohol. Surrogate decision maker is his . REVIEW OF SYSTEMS: There is no documented fever. He denied having any significant weight change. There is no double vision. He denies having any ear discharge. He denied having any rhinorrhea. No sore throat. No thyroid enlargement. Denies having any chest pain. There is no orthopnea. There is no nocturnal dyspnea. Denies having any abdominal pain. There was no nausea, no vomiting, no dysuria, no frequency. There was no seizure. No loss of consciousness. No pruritus and no skin ulceration. Review of 14 systems completed, all others negative. PHYSICAL EXAMINATION GENERAL: At this time, Mr. Kramer is a 74-year-old male patient. He is sitting in the ED stretcher. He does not appear to be in any acute distress. He appears to be well nourished and well developed. VITAL SIGNS: Blood pressure 142/82, pulse 65, respirations 16, O2 sat 97%, temperature 98.6. HEENT: Head is atraumatic and normocephalic. Eyes: EOMs are intact. Sclerae anicteric, not pale. Throat: Oral mucosa appears to be moist. No oropharyngeal erythema. NECK: Supple. LUNGS: Clear to auscultation bilaterally. No wheezes, rales or rhonchi. HEART: Heart sounds S1 and S2, regular rate and rhythm. No murmurs, rubs, or gallops. ABDOMEN: Soft, it was flat, it was nontender. Bowel sounds are present. EXTREMITIES: Pulses are 2+ throughout. He had 5/5 strength in the upper extremities distally and proximally. In the lower extremity, he had 5/5 strength in the right lower extremity distally and proximally. In the left lower extremity, he does have a left foot drop, which is chronic in nature NEUROLOGIC: He is awake, he is alert, he is oriented x3. Speech clear. Tongue midline. 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 He had no gross focal deficits. SKIN: Grossly intact. LABORATORY DATA/DIAGNOSTIC STUDIES: Today, WBC 6.1, RBC of 4.36, hemoglobin 13.4, hematocrit 39, platelet count 205. INR 1.06. Sodium 137, potassium 3.6, chloride 103, bicarb 24, BUN 23, creatinine of 1.15, glucose of 108, calcium 9.6 , total bili 0.7, AST 17, ALT 20, alk phos 54. He did have a cervical spine CT, impression: The patient has undergone a corpectomy of C6 with placement of a bone graft. Prior films on 04/12/19 shows an anterior displacement of the inferior plate from the anterior bony cortex of C7. Significance of the finding is unclear. This may be related to placement of the bone graft. There is a bony lucency surrounding the superior inferior screw raising the concern of movement. Multiple level degenerative cervical disk disease and facet disease. No significant central canal stenosis. Variable degrees of neural foraminal narrowing secondary to degenerative changes of the uncovertebral joints and facet joints. A 3.4 mm hypodensity located in the left thyroid lobe. This has not required further assessment. He did have an EKG obtained today as well. It showed a normal sinus rhythm, rate of 70. No ST elevation or T wave inversions noted. The previous EKG, no significant changes noted. He had a chest x-ray obtained today as well. No pleural effusions. No pulmonary edema was noted. Normal cardiac silhouette. Old medical records were reviewed. ASSESSMENT AND PLAN: Mr. Kramer is a 74-year-old male patient presenting today under the instructions of Dr. Monet for concern of loosening of his hardware from a cervical decompression that he had done in January of 2019. He will be admitted on inpatient status for: 1. Cervical spinal stenosis, status post anterior cervical diskectomy now with possible hardware failure under further management of Dr. Monet and his team. In terms of perioperative risk stratification, he is medically optimized. His EKG is stable. Chest x-ray is stable. He can walk up a flight of stairs without having chest pain. I would continue his beta-zulema through the perioperative course. I will restart his losartan/hydrochlorothiazide when his blood pressure is able to tolerate and we will continue to follow him. I will leave him on bedrest until he is seen by Dr. Monet and I will leave the Tyonek-J collar in place for the time being. 2. Hypertension. Continue meds prescribed except for losartan and hydrochlorothiazide. 3. Hyperlipidemia. Continue statin therapy. 4. Gout. We will restart his allopurinol in postoperative setting. 5. History of rheumatoid arthritis. At this point, not an active issue. We will continue his medical regimen. 6. DVT prophylaxis: He is high risk given his age and the fact I am putting him on bedrest. However, he is going to be going to surgery later today. I do not want to give him a blood thinner prior to cervical spine surgery, so I will order SCDs. 7. Fluids, electrolytes and nutrition: He will be n.p.o. I have ordered normal saline at 100 an hour. He is n.p.o. 8. Code status: Full code. TIME SPENT: Time spent on the admission was 60 minutes, greater than half the time was spent [id number] with the patient obtaining my history of physical; the other half time was spent going over the plan of care with the patient and implementing plan of care. I did discuss the plan of care with my attending, Dr. Arias; he is in agreement. CONNIE MCKEON NP [id number]/CPS #: [id number] VANDANA
[2019-04-16] MEDS ORDERED: celeCOXIB CAP* 200 MG PO ONE (08:57)
[2019-04-16] MEDS ORDERED: Acetaminophen TAB* 325 MG PO ONE (08:57)
[2019-04-16] MEDS ORDERED: Gabapentin CAP(*) 300 MG PO ONE (08:57)
[2019-04-16] MEDS ORDERED: Buffered Lidocaine 1% SYRIN* 1 ML/SYRINGE INTRADERM ONE (08:57)
[2019-04-16] MEDS ORDERED: Lactated Ringers 1000 ML Bag* 1,000 ML IV SCH (09:00)
[2019-04-16] MEDS: Atorvastatin* 40 MG TAB PO SCH (09:07)
[2019-04-16] MEDS: Metoprolol Succinate XL TAB* 100 MG PO SCH (09:07)
[2019-04-16] MEDS ORDERED: Acetaminophen TAB* 325 MG ONE (10:33)
[2019-04-16] MEDS ORDERED: celeCOXIB CAP* 200 MG ONE (10:33)
[2019-04-16] MEDS ORDERED: Gabapentin CAP(*) 300 MG ONE (10:33)
[2019-04-16] MEDS ORDERED: Lidocaine 1% w EPI 1:200,000* SDV 30 ML VIAL ONE (10:36)
[2019-04-16] MEDS ORDERED: Bupivacaine 0.25% SDV* 30 ML ONE (10:37)
[2019-04-16] MEDS ORDERED: Bacitracin INJECTION* 50,000 UNITS ONE ×2 (10:37→17:41)
[2019-04-16] MEDS ORDERED: Thrombin 5,000 UNITS* 1 APPLIC KIT - topical use - TOPICAL ONE (10:37)
[2019-04-16] MEDS ORDERED: Midazolam* 1 MG/ML 2 ML VIAL (2 MG) ONE (10:54)
[2019-04-16] MEDS ORDERED: Remifentanil* 2 MG VIAL ONE (10:54)
[2019-04-16] MEDS ORDERED: ceFAZolin 2 GM PREMIX in ORs 2 GM/50 ML BAG ONE ×2 (10:55→16:13)
[2019-04-16] MEDS ORDERED: Propofol* 500 MG/50 ML BTL ONE ×2 (10:59→14:06)
[2019-04-16] MEDS ORDERED: Propofol* 10 MG/ML 20 ML BTL ONE (10:59)
[2019-04-16] MEDS ORDERED: Succinylcholine* 20 MG/ML 10 ML VIAL ONE (11:06)
[2019-04-16] MEDS ORDERED: Artificial Tear OPHTH.OINT* 3.5 GM ONE (12:05)
[2019-04-16] MEDS ORDERED: Dexamethasone IV* 4 MG/ML 1 ML (4 MG) ONE (13:04)
[2019-04-16] MEDS ORDERED: HYDROmorphone INJ1* 1 MG/ML SYRINGE ONE ×2 (13:14→17:05)
[2019-04-16] MEDS ORDERED: Propofol* 1,000 MG/100 ML BTL ONE (15:37)
[2019-04-16] MEDS ORDERED: KETAMINE HCL* 50 MG/ML 10 ML VIAL ONE (16:08)
[2019-04-16] MEDS ORDERED: DiMENhydriNATE IV* 50 MG/ML VIAL IV PUSH PRN (16:48)
[2019-04-16] MEDS ORDERED: oxyCODONE TAB* 5 MG TAB PO PRN ×2 (16:48→19:24)
[2019-04-16] MEDS ORDERED: PROCHLORPERAZINE INJ 5 MG/ML 2 ML VIAL IV PRN (16:48)
[2019-04-16] MEDS ORDERED: Naloxone* 0.4 MG/ML 1 ML VIAL IV PRN (16:48)
[2019-04-16] MEDS ORDERED: HYDROmorphone INJ1* 1 MG/ML SYRINGE IV PRN (16:48)
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
[2019-04-16] MEDS ORDERED: fentaNYL* 50 MCG/ML 2 ML VIAL (100 MCG VIAL) ONE (18:48)
[2019-04-16] MEDS: fentaNYL* 50 MCG/ML 2 ML VIAL (100 MCG VIAL) IV PRN ×2 (18:49→19:10)
[2019-04-16] MEDS ORDERED: Magnesium Hydroxide LIQ* 30 ML UDC PO PRN (19:24)
[2019-04-16] MEDS ORDERED: Morphine INJ* 2 MG/ML 1 ML SYRINGE (TWO MG - NEW SYRINGE VERSION) IV PRN (19:32)
[2019-04-16] MEDS ORDERED: Vancomycin(*) 1,000 MG in NS 0.9% 250 ML* 250 ML IVPB ONE (19:42)
[2019-04-16] MEDS ORDERED: Vancomycin per Pharmacy* NOTE FOLLOW UP SCH (20:00)
[2019-04-16 20:25] LABS: C Reactive Protein 3.53 mg/L (<8.01)
[2019-04-16] MEDS ORDERED: Vancomycin(*) 1,500 MG in NS 0.9% 250 ML* 250 ML IVPB ONE (20:41)
[2019-04-16] MEDS: Lactated Ringers 1000 ML Bag* 1,000 ML IV SCH (20:48)
[2019-04-17 05:41] LABS: ABS Basophils 0.1 10^3/ul (0-0.2); ABS Lymphocytes 0.7 10^3/ul (1.0-4.8); ABS Monocytes 0.7 10^3/ul (0-0.8); ABS Neutrophils 8.7 10^3/ul (1.5-7.7); Hematocrit 37 % (42-52); Hemoglobin 12.6 g/dL (14.0-18.0); Mean Corpuscular HGB Conc 35 g/dL (31-36); Mean Corpuscular Hemoglobin 31 pg (27-31); Mean Corpuscular Volume 89 fL (80-94); Mean Platelet Volume 7.4 fL (7.4-10.4); Nucleated Red Blood Cells % 0.1; Platelet Count 201 10^3/uL (150-450); Red Blood Count 4.11 10^6 /uL (4.18-5.48); Red Cell Distribution Width 15 % (10-15); White Blood Count 10.1 10^3/uL (3.5-10.8)
[2019-04-17 05:43] LABS: INR 1.1 (0.82-1.09)
[2019-04-17 05:55] LABS: BUN/Creatinine Ratio 19.1 (8-20); Calcium 8.5 mg/dL (8.6-10.3); EGFR African American 94.7 (>60); EGFR Non-African American 78.2 (>60); Potassium 4.1 mmol/L (3.5-5.0)
[2019-04-17] MEDS: Metoprolol Succinate XL TAB* 100 MG PO SCH (08:44)
[2019-04-17] MEDS: Vancomycin(*) 1,000 MG in NS 0.9% 250 ML* 250 ML IV SCH ×2 (08:44→21:35)
[2019-04-17] MEDS: Atorvastatin* 40 MG TAB PO SCH (08:44)
--- NOTE | 2019-04-17 10:17 | PN ---
Progress Note - Progress Note Date of Service: 04/17/19 SOAP: Subjective: []No events ON. In ICU for monitoring. Patient tolerated procedure well yesterday. No neck pain. Burrows. MJ collar. Bed rest. No voice changes. NPO. Handling saliva secretions very well. Objective: []VSS, Afebrile Tolerates MJ Collar well Wound s,c,d Darwin drain output noted. Drain was discontinued. Catheter appeared to be intact. No complications. Patient tolerated procedure well. AAOx3, TYRONE, CN II-XII grossly intact Motor 5/5 all extremities Sensory grossly intact to light touch Assessment: [] 74 yom POD#1 ACC revision Plan: []Monitor VS, Neurochecks Keep NPO. Esophagogram prior to advancing diet. OR in am for posterior instrumentation Discussed plan with patient and his . Appreciate IM, ICU care. Mukund Monet MD
--- NOTE | 2019-04-17 13:36 | PN ---
Progress Note - Progress Note Date of Service: 04/17/19 Note: Progress Note -- Critical Care 24 hour events/significant events: -awake, alert -no overnight events -admitted yesterday; went to OR and had revision of cervical hardware, ACDF -afebrile, BP and HR stable -C-collar in place -IVF infusing ROS: negative except for pertinent positives mentioned above Tele: NSR Vitals: Vital Signs Temp 97.8 F 04/17/19 12:00 Pulse 72 04/17/19 09:01 Resp 16 04/17/19 12:29 BP 129/89 04/17/19 12:00 Pulse Ox 98 04/17/19 09:01 Intake & Output 04/16/19 04/17/19 04/17/19 18:59 06:59 18:59 Intake Total 1050 2575 Output Total 0 1200 100 Balance 1050 1375 -100 Weight 86.5 kg Intake: IV Fluids 1050 2290 LR 1800 NS (0.9%) 1000 490 NS 50ML, Cefazolin 2G 50 IVPB 285 ABX - VANCOMYCIN 285 Output: DAXA #1 50 Urine 0 Zelaya 1150 100 Other: Estimated Void Medium # Bowel Movements 0 Estimated Stool Amount Medium # Voids 1 O2/Vent: 2L NC Infusions: LR Medications: Acetaminophen (Tylenol Tab*) 650 mg PO Q4H PRN PRN Reason: PAIN - MILD Atorvastatin Calcium (Lipitor*) 40 mg PO QAM [facility] Last Admin: 04/17/19 08:44 Dose: Not Given Sodium Chloride (Ns 0.9% 1000 Ml) 1,000 mls @ 100 mls/hr IV PER RATE [facility] Lactated Ringer's (Lactated Ringers 1000 Ml Bag*) 1,000 mls @ 75 mls/hr IV .per rate [facility] Last Admin: 04/16/19 20:48 Dose: 75 mls/hr Vancomycin HCl 1,000 mg/ (Sodium Chloride) 250 mls @ 166.667 mls/hr IV Q12H [facility] Last Admin: 04/17/19 08:44 Dose: 166.667 mls/hr Magnesium Hydroxide (Milk Of Magnesia Liq*) 30 ml PO DAILY PRN PRN Reason: CONSTIPATION Metoprolol Succinate ([facility] Xl Tab*) [facility] [place] Admin: 04/17/19 08:44 Dose: Not Given Ondansetron HCl (Zofran Inj*) 4 mg IV Q6H PRN PRN Reason: NAUSEA Ondansetron HCl (Zofran Inj*) 4 mg IV Q6H PRN PRN Reason: NAUSEA/VOMITING Oxycodone HCl (Roxycodone Tab*) 5 mg PO Q4H PRN PRN Reason: moderate pain Oxycodone HCl (Roxycodone Tab*) 10 mg PO Q4H PRN PRN Reason: PAIN - SEVERE Pharmacy Consult (Vancomycin Per Pharmacy*) 1 note FOLLOW UP .VANC PER PHARMACY CATHERINE; Protocol Pharmacy Profile Note (Vancomycin Trough Check) 1 note FOLLOW UP 829 ONE Stop: 04/18/19 08:31 Physical Exam: Constitutional: awake, alert, no distress, no diaphoresis Head: normocephalic, atraumatic Eyes: no pallor, no icterus ENT: moist mucous membranes Neck: soft, supple, no jvd, no stridor; c-collar in place CVS: normal rate, regular, no murmur Chest/Resp: bilateral air entry, no rhales, no wheeze, no rhonchi, no acc muscle use Abdomen/GI: soft, nontender, nondistended, BS+ Ext/Msk: warm, pulses+, no edema Skin: intact, warm Neuro: awake, alert, orientedx3, moving all extremities, no gross focal deficit Psych: normal affect Labs: Laboratory Results - last 24 hr 04/16/19 04/17/19 04/17/19 00:30 05:27 05:27 WBC 10.1 RBC 4.11 L Hgb 12.6 L Hct 37 L MCV 89 MCH 31 MCHC 35 RDW 15 Plt Count 201 MPV 7.4 Neut % (Auto) 85.5 Lymph % (Auto) 7.0 Trego % (Auto) 7.0 Eos % (Auto) 0.0 Baso % (Auto) 0.5 Absolute Neuts (auto) 8.7 H Absolute Lymphs (auto) 0.7 L Absolute Monos (auto) 0.7 Absolute Eos (auto) 0.0 Absolute Basos (auto) 0.1 Absolute Nucleated RBC 0.0 Nucleated RBC % 0.1 ESR 17 INR (Anticoag Therapy) Sodium 137 Potassium 3.6 Chloride 103 Carbon Dioxide 24 Anion Gap 10 BUN 22 Creatinine 1.15 Est GFR ( Amer) 75.0 Est GFR (Non-Af Amer) 62.0 BUN/Creatinine Ratio 19.1 Glucose 108 H Calcium 9.6 Total Bilirubin 0.70 AST 17 ALT 20 Alkaline Phosphatase 57 C-Reactive Protein 3.53 Total Protein 7.0 Albumin 4.3 Globulin 2.7 Albumin/Globulin Ratio 1.6 04/17/19 04/17/19 05:27 05:27 WBC RBC Hgb Hct MCV MCH MCHC RDW Plt Count MPV Neut % (Auto) Lymph % (Auto) Trego % (Auto) Eos % (Auto) Baso % (Auto) Absolute Neuts (auto) Absolute Lymphs (auto) Absolute Monos (auto) Absolute Eos (auto) Absolute Basos (auto) Absolute Nucleated RBC Nucleated RBC % ESR INR (Anticoag Therapy) 1.10 H Sodium 134 L Potassium 4.1 Chloride 104 Carbon Dioxide 23 Anion Gap 7 BUN 18 Creatinine 0.94 Est GFR ( Amer) 94.7 Est GFR (Non-Af Amer) 78.2 BUN/Creatinine Ratio 19.1 Glucose 139 H Calcium 8.5 L Total Bilirubin AST ALT Alkaline Phosphatase C-Reactive Protein Total Protein Albumin Globulin Albumin/Globulin Ratio Imaging: - Assessment: 74y M w/pmhx of HTN, HLD, Gout, RA; came to ER after found to have a displaced fixation screw at c7. Brought to OR yesterday for revision of surgical hardware , had extensive dissection of fibrosis. -Cervical hardware failure; s/p revision 04/15 -cervical spinal stenosis HTN HLD Plan: Neuro- -awake, alert -neurochecks as per protocol; no focal deficit appreciated -monitor for stridor -maintain c-collar -plan for barium swallow to eval for any esophageal leak givne extensive surgery he had done and lysis -plan for OR tomorrow for posterior approach -neurosurg followup -Delirium prec; avoid BDZ CVS- -BP and HR stable -cont metoprolol -cont statin -cont LR 75 cc/hr -Maintain MAP>65 Resp- -on NC, no distress -Wean Fio2 to keep sat>92% -Bronchodilators PRN, Aspiration prec ID- afebrile. wbc normal. periop abx given -on vanco for possible infected hardware -clinicaly nontoxic; pending intraop cultures -ID following GI- -plan for barium swallow -NPO for now -monitor for dysphagia -GI prophylaxis Renal- -strict I/O, replete to keep K>4, Mg>2 -zelaya as indicated Heme- no bleeding noted; no DAXA drains in place; Hg stable Endo-Maintain BG<200, insulin protocol as needed Musculsk- pressure ulcer prophylaxis. Bedrest. Wounds- none Nutrition- NPO; barium swallow pending DVT prophylaxis: none GI prophylaxis: none Central Line: no Arterial Line: no Zelaya Cathetor: no Disposition: in ICU for neurochecks and airway monitoring; plan for transfer to same day surgery today Patient clinical status: stable Code Status: full code Dino Shea MD Leasing Assistant (Electronically Signed)
[2019-04-17] MEDS: Lactated Ringers 1000 ML Bag* 1,000 ML IV SCH (13:43)
--- NOTE | 2019-04-17 17:00 | OP ---
DATE OF OPERATION: 04/16/19 - ROOM #333 DATE OF : 43 SURGEON: Conor Monet MD INTRAOPERATIVE CONSULT/CO-SURGEON: Bjorn Avila MD TOOLS ADMINISTRATOR: JOB Andrade ANESTHESIA: General. PRE-OP DIAGNOSIS: Hardware failure. POST-OP DIAGNOSES: 1. Hardware failure. 2. Possible infection. OPERATIVE PROCEDURE: The patient underwent revision of anterior cervical corpectomy at C6 with replacement of corpectomy cage, arthrodesis C5 to C7 with DBX and PEEK interbody cage, replacement of anterior plate, with intraoperative electrophysiological monitoring. ESTIMATED BLOOD LOSS: 75 cc. COMPLICATIONS: None. SUMMARY: The patient is a very pleasant 74-year-old left-handed gentleman with history of cervical spondylotic myelopathy who underwent 3 months ago an anterior cervical corpectomy at C6. The patient did very well. His preoperative pain had completely resolved and decided to remove the collar prior to 3 months on his own. Followup x-ray revealed anterior displacement of the corpectomy cage as well as the plate. For this reason, he was offered the option of surgical intervention in the form of anterior cervical corpectomy revision and possible need for posterior stabilization in the future. After all expectations, limitations, and possible complications of the procedure have been explained in detail to the patient with complications including, but not limited to bleeding, infection, risk of injury to adjacent structures, coma, paralysis, , need for additional procedures, anesthesia risks, stroke, blindness, cancer, instability, hardware failure, adjacent level disease, pseudoarthrosis, recurrent laryngeal nerve injury, spinal fluid leak, Henrry syndrome, injury to the esophagus or the trachea, need for tracheostomy or gastrostomy, need for prolonged ICU stay, prolonged rehabilitation, prolonged hospitalization, postoperative hematoma formation requiring evacuation, cord compression with paralysis; the patient was agreeable to proceed with surgery and informed consent was obtained. The patient understood that his condition may not improve and in fact may get worse after surgery and that he may need to have additional procedures in the future. He also understood that operative plan may be modified according to intraoperative findings and conditions and the case may be abandoned or done in more than 1 stages. The patient understood that he may require prolonged rehabilitation, prolonged ICU stay, need for tracheostomy or gastrostomy, and prolonged stay in the hospital. DESCRIPTION OF PROCEDURE: The patient was brought to the operating room and was placed under general anesthesia by the anesthesia team. He was carefully positioned supine on the Salbador table and all bony prominences were meticulously padded. His skin was prepped and draped in the standard fashion. After appropriate surgical pause and patient identification, the previous incision was identified and with the assistance of intraoperative fluoroscopic imaging, it was decided to go through the same incision. The skin was infiltrated with local anesthetic and a #10 surgical blade was used to incise the previous skin incision, which was slightly extended more medially. The skin was undermined with use of tenotomy scissors and self-retaining retractors were introduced into the field. Significant amount of scar tissue in the platysma was identified as expected from the recent anterior cervical approach. Careful dissection allowed for undermining of the platysma and dividing the platysma with use of tenotomy scissors. The plane between the medial border of the sternocleidomastoid and the medial structures was then developed with a series of sharp and blunt dissection. An excessive amount of scar tissue was encountered, which was carefully dissected free. Because of the excessive amount of scar tissue, intraoperative consultation with ENT, Dr. Avila was obtained, who kindly recommended use of a bougie 30 esophageal catheter to help with identification of the esophagus and kindly joined us to help with the dissection at the access site. Operative details from his part will be dictated in a separate dictation. After identifying the prevertebral fascia with significant amount of scar tissue and very meticulous and careful dissection, the anterior plate from the previous surgical intervention was identified. The screws were gently removed after unlocking the locking mechanism and the plate was removed without significant difficulty. The lateral borders of the corpectomy were identified and the corpectomy cage was found to be somewhat loose giving us the impression of pseudoarthrosis. Self- retaining retractors were introduced into the field and Hiland pins were placed on the upper margin and the lower margin of the corpectomy. The corpectomy cage was gently removed and significant amount of scar tissue was identified. There was a pocket of yellowish thick fluid just under the first layer of the scar tissue. This was cultured as infection may not be excluded. Then, high- speed drill was used to decorticate the borders of corpectomy making an even surface at C5 and C7. A thin layer of the posterior wall of C7 was left in place as well as the inferior part. An appropriately sized corpectomy PEEK interbody cage was filled with DBX and was inserted and secured in place. The Hiland pins were gently removed and after confirmation of meticulous hemostasis , a plate was slightly contoured in shape and was secured with temporary pins. Intraoperative fluoroscopic imaging confirmed excellent placement of all hardware. Then, attention was brought to place permanent screws with the assistance of handheld drill and removal of the temporary pins. After placing all hardware, then locking mechanism were engaged and intraoperative fluoroscopic imaging confirmed excellent placement of all hardware. Then, after copious irrigation, meticulous hemostasis and meticulous inspection, the self-retaining retractors were removed from the field. Meticulous hemostasis was achieved with use bipolar cautery and copious irrigation was performed after meticulous inspection and no hemorrhage was identified and this was confirmed with several Valsalva maneuvers. The incision was then closed by layers with interrupted Vicryl suture to approximate the platysma and inverted interrupted 2-0 Vicryl suture to approximate the subcutaneous tissue. The incision was closed over a Darwin drain, which was tunneled through a separate stab wound incision. The skin was then covered with Dermabond and sterile dressings. At the end of the procedure, all counts were reported to be correct. The patient remained hemodynamically stable throughout the case and intraoperative electro-physiological monitoring remained stable throughout the case. The patient was then extubated, was placed in a cervical collar, and was transferred to Recovery in excellent condition. [id number]/CPS #: [id number] VANDANA
--- NOTE | 2019-04-17 18:40 | CONS ---
CONSULTATION REPORT: DATE OF CONSULT: 04/17/19 PRIMARY CARE PROVIDER: Dr. Montano. PROVIDERS REQUESTING CONSULTATION: Xu Mckeon NP and Dr. Monet. CONSULTING SERVICE: Infectious Disease. PROVIDER: Jesse Vinson NP ATTENDING PROVIDER: Dr. Bola Carter.* (DICTATED BY JESSE VINSON NP) REASON FOR CONSULT: Suspected C-spine infection in the setting of loosening hardware. IMPRESSION: 1. Loosening hardware of the cervical spine. The patient initially had anterior cervical corpectomy at C6 and C5-7 anterior arthrodesis with PEEK interbody cage in January 2019. After having routine followup x-rays, he was noted to have loosening hardware at the C7 level. He returned to the OR last night to have replacement of the hardware. At that time, Dr. Monet saw some tissue that was reflective of either purulent drainage versus inflammatory changes of some soft tissue in the area and this area was debrided. Cultures were obtained while in the OR. Initial cultures with 1+ nucleated cells, 2+ epithelial cells, no organisms seen from the epidural cervical spine. Anaerobic culture pending. Second culture from the same area with 2+ neutrophils, 1+ nucleated cells, no organisms seen. He was started on vancomycin. Inflammatory markers are not elevated, does not have leukocytosis, and is afebrile. He denies any pain in the neck area. Dr. Monet is planning to take him back to the OR tomorrow for posterior instrumentation. 2. History of rheumatoid arthritis. RECOMMENDATIONS/PLAN: Recommend continuing vancomycin for now while we await culture results, at which point we can determine if the patient needs an extended course of antibiotics or not. We will continue to follow along. HISTORY OF PRESENT ILLNESS: Mr. Kramer is a 74-year-old male with past medical history significant for hypertension, cervical spine stenosis, hyperlipidemia, gout, vitamin D deficiency, and rheumatoid arthritis, who had previously underwent an anterior cervical corpectomy at C6 and C5-7 anterior arthrodesis with PEEK interbody cage in January of 2019. At the time of a recent followup with Dr. Monet, he had a cervical spine x-ray showing displacement of the anterior fixation screw at C7. He was instructed to go to the emergency room and had made it to the emergency room, but had signed himself out against medical advice at that time as he knew he was not going to have surgery until 04/16/19, and he did not want to stay in the hospital for 4 days. The patient was in contact with Dr. Monet yesterday, who encouraged him to go to the emergency room again. He had been wearing his [place] J collar throughout the weekend and had been feeling well. Denying any fevers, chills, chest pain, shortness of breath, cough, neck pain, back pain, nausea, vomiting, diarrhea, urinary symptoms, weakness, numbness, or tingling in his upper extremities. He underwent an anterior cervical hardware replacement last night with Dr. Monet. Dr. Monet plans to take the patient back to the OR for posterior cervical spine procedure with instrumentation tomorrow morning. He has been afebrile with no leukocytosis. The ESR was 17 on admission and CRP 3.53. He denies any pain. He reports feeling uncomfortable due to the [place] J collar, but denies neck pain. He is going to be transferred from the intensive care unit to the surgical floor later today. PAST MEDICAL HISTORY: 1. Hypertension. 2. Cervical spine stenosis. 3. Hyperlipidemia. 4. Gout. 5. Vitamin D deficiency. 6. Rheumatoid arthritis. PAST SURGICAL HISTORY: 1. Status post anterior cervical corpectomy at C6 and C5-7 anterior arthrodesis with PEEK interbody cage, DBX, local bone graft, plate and screws with intraoperative monitoring on January 17, 2019. 2. Status post revision of anterior cervical corpectomy at C6 with replacement of corpectomy cage, arthrodesis C5 to C7 with DBX and PEEK interbody cage, replacement of anterior plate, with intraoperative electrophysiological monitoring on April 16, 2019. 3. Status post left L4-5 hemilaminectomy and foraminotomy with removal of herniated disk in 2003. MEDICATIONS: Home medications: 1. Atorvastatin 40 mg by mouth daily. 2. Aspirin 81 mg by mouth daily. 3. Allopurinol 100 mg by mouth daily. 4. Aleve 1 to 2 capsules twice daily as needed for pain. 5. Metoprolol succinate 100 mg by mouth daily. 6. Losartan/hydrochlorothiazide 100/25 one tablet by mouth daily. 7. Vitamin D3 5000 units by mouth daily. Hospital medications: 1. Acetaminophen 650 mg by mouth every 4 hours as needed for fever or pain. 2. Atorvastatin 40 mg by mouth daily. 3. Lactated Ringer's 75 mL intravenously an hour. 4. Milk of magnesia 30 mL by mouth daily as needed for constipation. 5. Metoprolol succinate 100 mg by mouth daily. 6. Zofran 4 mg IV every 6 hours as needed for nausea. 7. Oxycodone 5 to 10 mg by mouth every 4 hours as needed for pain. 8. Sodium chloride 100 mL intravenously an hour. 9. Vancomycin 1000 mg IV every 12 hours. ALLERGIES: No known drug allergies. FAMILY HISTORY: Denies family history of recurrent or resistant infections. Mother with a history of heart disease and rectal cancer. Father with a history of melanoma. Maternal uncle with a history of diabetes. SOCIAL HISTORY: Denies alcohol, recreational drug use, or tobacco use. REVIEW OF SYSTEMS: I performed a 10-point review of systems. All the pertinent positives and negatives are mentioned in the history of present illness. The remaining review of systems are negative. PHYSICAL EXAM: Vital Signs: Temperature 98.5, heart rate 65, respiratory rate 15, O2 sat 96% on room air, blood pressure 137/82. General Appearance: Alert, appears to be in no acute distress, sitting up in bed. Head: Normocephalic, atraumatic. EENT: Extraocular movements are intact. No subconjunctival hemorrhage. Moist mucous membranes. Neck is currently in a [place] J collar. Neurological: Alert and oriented. Cranial nerves II through XII are grossly intact. Moves all extremities. Cardiovascular: Regular rate and rhythm. S1 and S2 present. No murmurs, rubs, or gallops heard. Respiratory: No accessory muscle use. The lungs are clear to auscultation bilaterally. Abdomen : Bowel sounds present. Abdomen is soft, nontender, nondistended. Extremities : No lower extremity edema. DP pulses are 2+ and symmetric. Musculoskeletal: No clubbing or cyanosis noted. He exhibits good strength in all extremities. Psychological: Calm and cooperative. Skin: No rashes or abnormalities seen. He has a surgical dressing to his anterior neck that is clean, dry, and intact. DIAGNOSTIC STUDIES/LAB DATA: Sodium 134, potassium 4.1, chloride 104, CO2 of 23 , BUN 18, creatinine 0.94, glucose 139. White blood cell count 10.1, hemoglobin 12.6, hematocrit 37, platelet count 201. CRP 3.53, ESR 17 on admission. Please see impression and recommendations outlined above, recommendations have been discussed with Dr. Monet and Dr. Shea. Thank you for asking us to see Mr. Kramer in consultation. The case has been discussed with my attending, Dr. Bola Carter, who agrees with the plan of care. Reviewed by JESSE VINSON, BRYAN-Geovanny 04/21/19 1103 [id number]/[facility] #: [id number] VANDANA
[2019-04-18] MEDS: Metoprolol Tartrate IV* 1 MG/ML 5 ML VIAL IV SCH ×8 (00:13→23:59)
[2019-04-18] MEDS: Lactated Ringers 1000 ML Bag* 1,000 ML IV SCH (05:27)
[2019-04-18] MEDS ORDERED: Bacitracin INJECTION* 50,000 UNITS ONE ×3 (06:39→14:06)
[2019-04-18] MEDS ORDERED: Bupivacaine 0.5%* 50 ML MDV VIAL ONE (06:39)
[2019-04-18] MEDS ORDERED: Remifentanil* 2 MG VIAL ONE ×3 (07:16→13:25)
[2019-04-18] MEDS ORDERED: Propofol* 10 MG/ML 20 ML BTL ONE ×5 (07:18→12:02)
[2019-04-18] MEDS ORDERED: Succinylcholine* 20 MG/ML 10 ML VIAL ONE (07:21)
[2019-04-18] MEDS ORDERED: Glycopyrrolate IV* 0.2 MG/ML 1 ML VIAL ONE (07:21)
[2019-04-18] MEDS ORDERED: EPHEDrine (Pressors)* 50 MG/ML VIAL ONE (07:21)
[2019-04-18] MEDS ORDERED: Rocuronium* 10 MG/ML VIAL ONE (07:22)
[2019-04-18] MEDS ORDERED: Midazolam* 1 MG/ML 2 ML VIAL (2 MG) ONE (07:24)
[2019-04-18] MEDS ORDERED: fentaNYL* 50 MCG/ML 2 ML VIAL (100 MCG VIAL) ONE ×2 (07:24→09:25)
[2019-04-18] MEDS ORDERED: Phenylephrine 40 MCG/ML SYRINGE ONE (07:39)
[2019-04-18] MEDS ORDERED: ceFAZolin 2 GM PREMIX in ORs 2 GM/50 ML BAG ONE ×2 (07:43→13:09)
--- NOTE | 2019-04-18 07:44 | PN ---
Progress Note - Progress Note Date of Service: 04/18/19 SOAP: Subjective: []No events ON. No neck pain. Burrows. MJ collar. Bed rest. No voice changes. NPO. No difficulties swallowing. Objective: [] VSS, Afebrile Tolerates MJ Collar well Wound s,c,d AAOx3, TYRONE, CN II-XII grossly intact Motor 5/5 all extremities except baseline Left foot DR, EHL 1-2/5 (patient has chronic foot drop) Sensory grossly intact to light touch Assessment: []74 yom POD#2 ACC revision Plan: []Monitor VS, Neurochecks Esophagogram prior to advancing diet. Most likely gastrographin. OR today for posterior instrumentation, possible decompression and possible revision of ACC. Discussed plan with patient in extend. After explaining expectations, limitations and possible complications to the patient with complications including, but not limited to bleeding, infection, risks of injury to adjacent structures, coma, paralysis, , need for additional procedures, stroke, blindness, cancer, hardware failure, hardware misplacement, instability, pseudoarthrosis, adjacent level disease, proximal or distal failure, spinal fluid leak, injury to vertebral arteries, injury to trachea, esophagus, need for tracheostomy, gastrostomy, need for prolonged ICU stay, prolonged hospitalization prolonged rehabilitation, anesthesia risks, patient was agreeable to proceed with surgery and IC was obtained. Patient understood that his condition may not improve and in fact may get worse after surgery and that he may require additional procedures in the future. He also understands that operative plan may be modified according to intraoperative procedures and that the case may be abandoned or done in more than one stages. Appreciate IM, ICU, ID care. Mukund Monet MD
[2019-04-18] MEDS ORDERED: Lidocaine 0.5%* 50 ML SDV ONE (08:17)
[2019-04-18] MEDS ORDERED: Vancomycin Trough Check NOTE FOLLOW UP ONE (08:30)
[2019-04-18] MEDS ORDERED: Artificial Tear OPHTH.OINT* 3.5 GM ONE (08:36)
[2019-04-18] MEDS ORDERED: Propofol* 1,000 MG/100 ML BTL ONE (09:47)
[2019-04-18] MEDS ORDERED: Labetalol IV* 5 MG/ML 20 ML VIAL ONE (10:10)
[2019-04-18] MEDS: Atorvastatin* 40 MG TAB PO SCH (11:39)
[2019-04-18] MEDS ORDERED: fentaNYL* 50 MCG/ML 2 ML VIAL (100 MCG VIAL) IV PRN (14:03)
[2019-04-18] MEDS ORDERED: Naloxone* 0.4 MG/ML 1 ML VIAL IV PRN (14:03)
[2019-04-18 14:40] LABS: Hematocrit 30 % (42-52); Hemoglobin 10.5 g/dL (14.0-18.0)
[2019-04-18 15:01] LABS: Potassium 3.6 mmol/L (3.5-5.0)
[2019-04-18] MEDS ORDERED: Metoclopramide IV* 5 MG/ML 2 ML VIAL ONE (15:08)
[2019-04-18] MEDS ORDERED: Ondansetron INJ* 2 MG/ML VIAL ONE (15:08)
[2019-04-18] MEDS ORDERED: Lactated Ringers 1000 ML Bag* 1,000 ML IV SCH (17:00)
[2019-04-18] MEDS ORDERED: Propofol* 10 MG/ML 20 ML BTL IV ONE (17:14)
[2019-04-18] MEDS ORDERED: Morphine 4 MG/ML VIAL (1 ml) 4 MG/ML VIAL IV PRN (18:20)
--- NOTE | 2019-04-18 18:32 | PN ---
Progress Note - Progress Note Date of Service: 04/18/19 Note: Post Op Critical Care Follow Up Brief Note: Patient received from PACU. s/p C2-T3 instrumentation without decompression. A- line is being transduced, hemodynamically stable. Patient is describing 8/10 left arm and neck pain. Denies n/v, no headache or dizziness. 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 Otherwise answering questions appropriately. Per Dr. Monet, plan for next 24 hours: - HOB 30degrees - OOB to chair tomorrow with PT, tonight if possible but patient is very sleepy from anesthesia - Pull drain, a-line and zelaya in AM - Restart Hep SQ after drain removed, continue SCDs and TEDs for now - Pain control, zofran PRN - Pulmonary toilet - IVF with IVF at 50cc/hr - Gastrograffin swallow study tomorrow, NPO until then
--- NOTE | 2019-04-18 18:47 | PN ---
Subjective Date of Service: 04/18/19 Interval History: Pt is too groggy to appropriately answer any of my questions. Objective Active Medications: Acetaminophen (Tylenol Tab*) 650 mg PO Q4H PRN PRN Reason: PAIN - MILD Atorvastatin Calcium (Lipitor*) 40 mg PO QAM [facility] Last Admin: 04/18/19 11:39 Dose: Not Given Vancomycin HCl 1,000 mg/ (Sodium Chloride) 250 mls @ 166.667 mls/hr IV Q12H [facility] Last Admin: 04/17/19 21:35 Dose: 166.667 mls/hr Lactated Ringer's (Lactated Ringers 1000 Ml Bag*) 1,000 mls @ 50 mls/hr IV PER RATE [facility] Last Admin: 04/18/19 18:24 Dose: 50 mls/hr Magnesium Hydroxide (Milk Of Magnrayo Liq*) 30 ml PO DAILY PRN PRN Reason: CONSTIPATION Metoprolol Tartrate (Lopressor Iv*) 5 mg IV Q6HR [facility] Last Admin: 04/18/19 18:28 Dose: 5 mg Morphine Sulfate (Morphine Inj (Syringe))*) 2 mg IV Q4H PRN PRN Reason: PAIN - SEVERE Ondansetron HCl (Zofran Inj*) 4 mg IV Q6H PRN PRN Reason: NAUSEA Oxycodone HCl (Roxycodone Tab*) 5 mg PO Q4H PRN PRN Reason: moderate pain Oxycodone HCl (Roxycodone Tab*) 10 mg PO Q4H PRN PRN Reason: PAIN - SEVERE Last Admin: 04/18/19 18:28 Dose: 10 mg Pharmacy Consult (Vancomycin Per Pharmacy*) 1 note FOLLOW UP .VANC PER PHARMACY [facility]; Protocol Vital Signs - 8 hr 04/18/19 04/18/19 04/18/19 16:01 16:05 16:10 Temperature Pulse Rate 89 87 86 Respiratory 6 21 Rate Blood Pressure 171/104 169/100 166/98 (mmHg) O2 Sat by Pulse 97 99 98 Oximetry 04/18/19 04/18/19 04/18/19 16:15 16:20 16:25 Temperature 100.2 F Pulse Rate 100 86 89 Respiratory 28 22 22 Rate Blood Pressure 176/109 166/105 162/93 (mmHg) O2 Sat by Pulse 95 98 97 Oximetry 04/18/19 04/18/19 04/18/19 16:30 16:45 17:00 Temperature Pulse Rate 89 90 94 Respiratory 22 22 21 Rate Blood Pressure 166/93 169/89 171/94 (mmHg) O2 Sat by Pulse 97 96 97 Oximetry 04/18/19 04/18/19 04/18/19 17:35 17:46 18:00 Temperature 99 F Pulse Rate 90 87 90 Respiratory 21 28 22 Rate Blood Pressure 169/91 179/95 166/90 (mmHg) O2 Sat by Pulse 99 99 99 Oximetry 04/18/19 18:02 Temperature 99 F Pulse Rate Respiratory Rate Blood Pressure (mmHg) O2 Sat by Pulse Oximetry Oxygen Devices in Use Now: OxyMask Appearance: Elderly male sitting up in bed, groggy, puffy face, in NAD Eyes: No Scleral Icterus Ears/Nose/Mouth/Throat: Mucous Membranes Moist Neck: - - [place] J collar in place Respiratory: Symmetrical Chest Expansion and Respiratory Effort, Clear to Auscultation - anteriorly Cardiovascular: NL Sounds; No Murmurs; No JVD, RRR, No Edema Abdominal: NL Sounds; No Tenderness; No Distention Extremities: No Clubbing, Cyanosis Skin: No Nodules or Sclerosis Neurological: - - groggy Result Diagrams: 04/18/19 14:04 04/18/19 14:04 Microbiology and Other Data: Microbiology 04/16/19 16:21 Anaerobic Culture - Preliminary Wound No Growth Day 2 Gram Stain - Final Wound Culture - Preliminary No Growth Day 2 04/16/19 16:21 Wound Gram Stain - Final Tissue Tissue Culture - Preliminary No Growth Day 2 04/16/19 20:22 Nasal Screen MRSA (PCR) - Final Nasal Mrsa Not Detected Assess/Plan/Problems-Billing Mr Kramer is a 74 yo M who presented to the ER at the recommendation of Dr Monet for loosening of his cervical hardware. - Patient Problems (1) Hardware failure of anterior column of spine Current Visit: Yes Status: Acute Code(s): T84.216A - BREAKDOWN (MECHANICAL) OF INT FIX OF VERTEBRAE, INIT SNOMED Code(s): 7664699 Comment: Pt is s/p ACC on 04/16/19 and was taken back to the OR 04/18/19 for posterior repair. Continue pain control. Monitor in ICU overnight. ICU team aware and is following. (2) HTN (hypertension) Current Visit: Yes Status: Acute Code(s): I10 - ESSENTIAL (PRIMARY) HYPERTENSION SNOMED Code(s): 96828950 Comment: Continue IV metoprolol for BP control. (3) HLD (hyperlipidemia) Current Visit: Yes Status: Acute Code(s): E78.5 - HYPERLIPIDEMIA, UNSPECIFIED SNOMED Code(s): 59111200 Comment: Lipitor. (4) Rheumatoid arthritis Current Visit: Yes Status: Acute Code(s): M06.9 - RHEUMATOID ARTHRITIS, UNSPECIFIED SNOMED Code(s): 36862162 (5) DVT prophylaxis Current Visit: Yes Status: Acute Code(s): Z29.9 - ENCOUNTER FOR PROPHYLACTIC MEASURES, UNSPECIFIED SNOMED Code(s): 847834129 Comment: SCDs (6) Full code status Current Visit: Yes Status: Acute Code(s): Z78.9 - OTHER SPECIFIED HEALTH STATUS SNOMED Code(s): 555180009
[2019-04-18] MEDS: Vancomycin(*) 1,000 MG in NS 0.9% 250 ML* 250 ML IV SCH ×2 (20:30→21:28)
[2019-04-18] MEDS: Morphine INJ* 2 MG/ML 1 ML SYRINGE (TWO MG - NEW SYRINGE VERSION) IV PRN (21:44)
[2019-04-18] MEDS ORDERED: hydrALAZINE IV* 20 MG/ML VIAL IV SLOW PU ONE (21:49)
--- NOTE | 2019-04-19 00:21 | OP ---
DATE OF OPERATION: 04/18/19 - ROOM #ICU-03 DATE OF : 43 SURGEON: Conor Monet MD HISTOLOGICAL ILLUSTRATOR: JOB Andrade ANESTHESIA: General. PRE-OP DIAGNOSES: 1. Degenerative disk disease. 2. Cervical spondylotic myelopathy with kyphosis. POST-OP DIAGNOSES: 1. Degenerative disk disease. 2. Cervical spondylotic myelopathy with kyphosis. OPERATIVE PROCEDURE: The patient underwent posterior cervical instrumentation and arthrodesis C2-T3 with C2 bilateral pedicle screws; C3, C4, C5, and C6 bilateral lateral mass screws, T1, T2, and T3 bilateral pedicle screws with partial facetectomies, arthrodesis with DBX putty, cancellous chips, intraoperative monitoring, and intraoperative navigation. ESTIMATED BLOOD LOSS: 300 cc. COMPLICATIONS: None. INDICATIONS: The patient is a very pleasant 74-year-old left-hand gentleman with a history of cervical spondylotic myelopathy with cervical kyphosis, who underwent recently a revision of anterior cervical corpectomy at C6. The patient was offered the option of a posterior instrumentation and arthrodesis. After explaining the expectations, limitations, and possible complications of the procedure to the patient with complications including but not limited to bleeding, infections, risk of injury to adjacent structures, coma, paralysis, , need for additional procedures, anesthesia risk, stroke, blindness, cancer, instability, hardware failure, adjacent level disease, pseudoarthrosis, proximal and distal junctional disease, proximal and distal kyphosis, spinal fluid leak, loss of bladder or bowel control, pneumothorax, deep venous thrombosis, pulmonary embolism, need for additional procedures,tracheostomy, gastrostomy and anesthesia risk. The patient was agreeable to proceed with surgery and informed consent was obtained. The patient understood that his condition may not improve and in fact may get worse after surgery and that he may need to have additional procedure in the future. He also understood that operative plan may be modified according to intraoperative findings and conditions and that the procedure may be abandoned or done in more than 1 stages. The patient understood that he may require prolonged hospitalization, prolonged ICU stay, prolonged ventilation, and prolonged rehabilitation. The patient understood that his condition may not improve and in fact may get worse after surgery and that he may need to have additional procedures in the future. DESCRIPTION OF PROCEDURE: The patient was brought to the operating room, was placed under general anesthesia by the anesthesia team. He was carefully positioned prone on the Salbador table and all bony prominences were meticulously padded. The skin was prepped and draped in usual sterile fashion. After appropriate surgical pause and patient identification, a midline incision over the spinous process of C2 to T4 approximately was marked on the skin. The incision was infiltrated with local anesthetic. A #10 surgical blade was used to incise the skin. The incision was carried down to the dorsal facia with the use of Bovie cautery, self-retaining retractors were introduced further into the field. The dorsal facia was divided in both sides of midline with Bovie cautery and the paraspinal musculature was elevated with use of periosteal elevator and Bovie cautery. The spinous process, lamina, pars of C2 ; as well as spinous process, lamina, and lateral masses of C3 to C7; as well as the spinous process lamina; as well as the transverse processes of T1 to T3 were carefully exposed in the subperiosteal fashion. Significant degenerative changes in the facets were identified as expected from the preoperative imaging. Over the spinous process of approximately T4, the navigation star clamp was placed and the navigation star was secured. Intraoperative OR imaging was obtained and the patient's data was transferred to the navigation platform. With the use of intraoperative navigation, the pedicles of T3, T2, and T1 were cannulated with the use of high-speed drill and hand-held drill and tap. Pedicle screws were inserted at bilateral T3, T2, and T1. Then, attention was brought to perform placement of the pedicle screws at C2. The entry point was identified and marked with high-speed drill. With the use of intraoperative navigation the pedicles of C2 were cannulated with the use of high- speed drill and hand-held drill and after tapping, 24 mm Vertex Medtronic screws were inserted. Then, attention was brought to perform the placement of the lateral mass screws. The lateral mass of C3, C4, C5, and C6 were identified. Small facetectomies were performed and the entry point was marked with the use of anatomical landmarks and intraoperative navigation. The trajectories for the lateral mass screws were performed with high-speed drill and hand-held drill and after tapping of the trajectories 3.5 x 14 mm screws were placed. Then high speed drill was used to perform decortication at the facets, bilateral facetectomies, as well as decortication of the exposed bony surfaces. Two titanium rods were cut and contoured in shape in order to connect the screw head. These were secured with screw head caps and slight compression was applied to assist with increase of the patient's lordosis. Then bone graft with a form of DBX and cancellous bone screws were placed and the self-retaining retractors were removed from the field. After copious irrigation and after confirmation of meticulous hemostasis and meticulous inspection, the wound was closed by layers over a Darwin drain which was tunneled through a separate stab wound incision. A combination of 0 and #1 interrupted Vicryl sutures were used to approximate the dorsal fascia while the subcutaneous tissue was undermined and the skin and the subcutaneous tissue was approximated with interrupted 2-0 Vicryl suture in combination with 0 Vicryl sutures. The skin was then approximated with #1 Prolene sutures and the wound was covered with Xeroform and sterile dressings. At the end of the procedure all counts were reported to be correct. The patient remained hemodynamically stable throughout the case and the intraoperative electrophysiological monitoring remained stable throughout the case. Of note, after the placement of all hardware a second O-arm imaging was obtained , which confirmed excellent placement of all hardware. The patient was then turned supine, was extubated, and was transferred to the recovery in excellent condition. [id number]/[facility] #: [id number] VANDANA
[2019-04-19] MEDS: Morphine INJ* 2 MG/ML 1 ML SYRINGE (TWO MG - NEW SYRINGE VERSION) IV PRN ×3 (00:43→11:30)
[2019-04-19] MEDS: Metoprolol Tartrate IV* 1 MG/ML 5 ML VIAL IV SCH ×3 (05:54→19:01)
[2019-04-19] MEDS: Atorvastatin* 40 MG TAB PO SCH (09:11)
[2019-04-19] MEDS: Vancomycin(*) 1,000 MG in NS 0.9% 250 ML* 250 ML IV SCH ×2 (09:11→20:53)
[2019-04-19] MEDS ORDERED: hydrALAZINE IV* 20 MG/ML VIAL IV SLOW PU PRN (09:54)
--- NOTE | 2019-04-19 10:11 | PN ---
Date of Service: 04/19/19 Critical Care Services: Patient seen and examined. Some HTN overnight, but no other acute events. Had low grade temps overnight, no chills. Pain well controlled, no n/v, wants to eat. Vital Signs: Temp Pulse Resp BP SpO2 FiO2 98.4 F 81 16 149/78 96 04/19/19 08:00 04/19/19 08:00 04/19/19 08:00 04/19/19 08:00 04/19/19 08:00 Physical Exam: General: Alert, NAD HEENT: Nasra-orbital edema bilaterally, non-icteric sclera, dry oral mucosa Neck: difficult to assess 2/2 [place] J and dressings CV: Regular rate and rhythm, no murmurs or rubs Pulm/Chest: Good bilateral air entry, no rhonchi or rales, no wheeze Abdomen/GI: soft, nontender, nondistended, +BS noted MSK/Skin: warm, dry, intact, +2 pulses+, no edema or cyanosis Neuro: A&Ox3, no gross focal deficits, moves all extremities Psych: Appropriate affect and mood Fluid Balance (Past 24 Hours): Intake & Output 04/17/19 04/18/19 04/19/19 04/20/19 06:59 06:59 06:59 06:59 Intake Total 3625 2067 5490 Output Total 1200 2275 1750 295 Balance 2425 -208 3740 -295 Weight 190 lb 11.2 oz 207 lb 3.752 oz Intake: IV Fluids 3340 2067 5240 ABX - VANCOMYCIN 517 LR 1800 1550 5190 NS (0.9%) 1490 NS 50ML, Cefazolin 2G 50 50 IVPB 285 250 ABX - VANCOMYCIN 285 250 Oral 0 Output: DAXA #1 50 220 20 Urine 0 Zelaya 1150 2275 1530 275 Other: Estimated Void Medium # Bowel Movements 0 Estimated Stool Amount Medium # Voids 1 Labs: Laboratory Results - last 24 hr 04/18/19 04/18/19 04/18/19 13:44 14:04 14:04 Hgb 10.5 L Hct 30 L ABG pH 7.43 ABG pCO2 36 ABG pO2 177 H ABG HCO3 24.9 ABG O2 Saturation 100.0 H ABG Base Excess -0.1 Sodium 135 Potassium 3.6 Chloride 103 Carbon Dioxide 26 Anion Gap 6 Glucose 119 H Studies: Patient Name: ADELA NORTON Medical Record#: [id number] Ordering Physician: Belinda Rendon MD Acct.#: [id number] : 1945 Age: 74 Sex: M Location: SURGICAL STAY UNIT Exam Date: 04/16/198 ADM Status: ADM IN Order Information: SP CERVICAL 2-3 VWS Accession Number: [id number] CPT: 64492 HISTORY: post op COMPARISONS: April 12, 2019 VIEWS: 4, Frontal, and bilateral oblique views of the cervical spine. FINDINGS: Limited frontal and oblique views of the cervical spine. The patient is status post anterior cervical fusion at C5, C6-C7. The alignment of the fusion plate is not well evaluated on the submitted images. There is diffuse uncovertebral and facet osteoarthritis. There is diffuse moderate to severe bilateral neuroforaminal narrowing on the oblique views. There is multilevel anterolateral marginal osteophyte formation. IMPRESSION: LIMITED STUDY. STATUS POST ANTERIOR CERVICAL FUSION. R0 Preliminary Imaging Read R0 Nutrition: NPO pending swallow study Impression: This is a 74 year old male that was referred to [facility] [place] urgent surgical intervention for loosening of surgical hardware of the c-spine. Diagnoses: 1. Degenerative disk disease with removal of hardware and reinstrumentation of C2-T3 (anterior and posterior approaches) 2/2 hardware failure 2. HTN 3. RA Plan: Neuro - Continue neuro checks Q2h - HOB 30 degrees - PT eval, OOB to chair and ambulate with [place] J collar - Dr. Monet to remove DAXA drain CV - Hypertensive, on BB at home - Continue IV lopressor Q6h, added hydralazine Q6h PRN Resp - No active issues - Continue flutter valve post-op ID - ID following - Tissue and blood cultures NTD - Currently on vanco with mild fevers overnight, however, these are likely reactive 2/2 surgery rather than true fever - Will defer to ID on stopping vanco but would expect it to be DCd today given negative cultures GI - NPO until gastrograffin swallow study Renal - Remove zelaya - Continue to optimize lytes while NPO then DC IVF Heme - Follow H&H - Restart heparin SQ after drain is pulled Endo - BG stable Musculsk/SKIN - Dressing changes per NS - OOB and ambulate DVT prophylaxis: Restart HSQ today after drain removed GI prophylaxis: no indication Central Line: None Arterial Line: Right radial, remove today Zelaya Cathetor: Remove today Disposition: Medically stable for downgrade to surgical floor today Patient clinical status: Stable Code Status: Full code Total Critical Care time is 40 minutes
--- NOTE | 2019-04-19 10:43 | PN ---
Progress Note - Progress Note Date of Service: 04/19/19 SOAP: Subjective: CC: Suspected C-spine infection HPI: Mr. 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 Presented to the hospital with C-spine hardware failure. Denies fever, chills, neck pain, nausea, vomiting, or diarrhea. He is anxious to be able to eat. Objective: Vital Signs - 8 hr 04/19/19 04/19/19 04/19/19 07:31 08:00 09:00 Temperature 98.4 F Pulse Rate 81 81 Respiratory 17 17 12 Rate Blood Pressure 149/78 150/80 (mmHg) O2 Sat by Pulse 96 96 Oximetry 04/19/19 10:00 Temperature Pulse Rate 84 Respiratory 15 Rate Blood Pressure 152/79 (mmHg) O2 Sat by Pulse 94 Oximetry Physical Exam: General: NAD, laying in bed Neurological: Alert and Oriented HEENT: Moist MM, no thrush Cardiovascular: Heart rate regular Respiratory: Lung sounds clear Abdominal: Bowel sounds present; ABD soft, non tender and non distended MSK: ROBERTS Skin: No rash. DSG to anterior neck clean, dry and intact Laboratory Results - last 24 hr 04/18/19 04/18/19 04/18/19 13:44 14:04 14:04 Hgb 10.5 L Hct 30 L ABG pH 7.43 ABG pCO2 36 ABG pO2 177 H ABG HCO3 24.9 ABG O2 Saturation 100.0 H ABG Base Excess -0.1 Sodium 135 Potassium 3.6 Chloride 103 Carbon Dioxide 26 Anion Gap 6 Glucose 119 H Microbiology 04/16/19 16:21 Anaerobic Culture - Preliminary Wound No Growth Day 3 Gram Stain - Final Wound Culture - Preliminary No Growth Day 3 04/16/19 16:21 Wound Gram Stain - Final Tissue Tissue Culture - Preliminary No Growth Day 3 04/16/19 20:22 Nasal Screen MRSA (PCR) - Final Nasal Mrsa Not Detected Assessment: 1. 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 Per Dr. Monet noted to have possible spinal abscess when he preformed revision on 04/16/19. No sign of infection noted during the posterior procedure yesterday per Dr. Monet. Cultures with no growth to date. Low grade fevers yesterday. No leukocytosis and CRP/ESR normal. Plan: Continue Vancomycin. In the setting of a possible C-spine infection, will plan on an extended course of IV ABX. Day 3 of ABX.
[2019-04-19] MEDS ORDERED: Dextrose 50% Syringe 50 ML* 25 GM/50 ML SYRINGE IV PUSH PRN (14:17)
[2019-04-19] MEDS ORDERED: D5NS 0.9% 1000 ML BAG* 1,000 ML IV SCH (15:00)
[2019-04-19] MEDS: Insulin LISPRO* 1 UNITS UNIT SUBCUT SCH ×2 (15:50→20:53)
[2019-04-19] MEDS: Dexamethasone IV* 4 MG/ML 1 ML (4 MG) IV SLOW PU SCH ×2 (15:50→20:53)
[2019-04-19] MEDS: Acetaminophen IV 1GM/100ML * 100 ML IVPB SCH ×2 (15:51→22:50)
[2019-04-20] MEDS: Metoprolol Tartrate IV* 1 MG/ML 5 ML VIAL IV SCH ×3 (00:04→14:00)
--- NOTE | 2019-04-20 00:59 | PN ---
Progress Note - Progress Note Date of Service: 04/19/19 SOAP: Subjective: []No events ON. No neck pain. Burrows. MJ collar. Ambulated. Out of bed on a chair. Patient's at bedside. No voice changes. Esophagogram negarive for injury. No able to swallow well yet. Objective: []VSS, Afebrile Tolerates MJ Collar well Wounds s,c,d [place] drain output noted. AAOx3, TYRONE, CN II-XII grossly intact Motor 5/5 all extremities except baseline Left foot DR, EHL 1-2/5 (patient has chronic foot drop) Sensory grossly intact to light touch Assessment: []74 yom POD#3 ACC revision POD#1 Posterior C2-T3 arthrodesis Plan: []Monitor VS, Neurochecks Monitpr drain output. Encourage ambulation Advance diet as soon as possible. On decadron. Postop XR reveal good placement of hardware, good alignment of C spine. CSVA 34 mm PT Start Sq heparin in am Nutrition consult DC planning. Appreciate Im, ICU care. Mukund Monet MD
[2019-04-20] MEDS: Insulin LISPRO* 1 UNITS UNIT SUBCUT SCH ×5 (04:56→21:21)
[2019-04-20] MEDS: Dexamethasone IV* 4 MG/ML 1 ML (4 MG) IV SLOW PU SCH ×2 (04:56→08:51)
[2019-04-20] MEDS: Acetaminophen IV 1GM/100ML * 100 ML IVPB SCH (06:45)
[2019-04-20] MEDS: Atorvastatin* 40 MG TAB PO SCH (08:51)
[2019-04-20] MEDS: Vancomycin(*) 1,000 MG in NS 0.9% 250 ML* 250 ML IV SCH ×2 (08:51→21:20)
[2019-04-20] MEDS: Metoprolol Tartrate TAB* 50 mg PO SCH ×2 (09:40→21:20)
[2019-04-20] MEDS ORDERED: Heparin VIAL(*) 5000 UNITS/ML VIAL (FIVE THOUSAND) SUBCUT SCH (10:00)
--- NOTE | 2019-04-20 12:54 | PN ---
Date of Service: 04/20/19 Critical Care Services: Patient seen and examined. Feeling well, ambulating. Tolerating meal this am, pain well controlled. Vital Signs: Temp Pulse Resp BP SpO2 FiO2 98.3 F 71 15 117/65 95 04/20/19 07:41 04/20/19 12:00 04/20/19 12:00 04/20/19 12:00 04/20/19 12:00 Physical Exam: General: Alert, NAD HEENT: Nasra-orbital edema bilaterally almost resolved, non-icteric sclera, dry oral mucosa, some thrush noted to tongue Neck: difficult to assess 2/2 [place] J and dressings CV: Regular rate and rhythm, no murmurs or rubs Pulm/Chest: Good bilateral air entry, no rhonchi or rales, no wheeze Abdomen/GI: soft, nontender, nondistended, +BS noted MSK/Skin: warm, dry, intact, +2 pulses+, no edema or cyanosis Neuro: A&Ox3, no gross focal deficits, moves all extremities Psych: Appropriate affect and mood Fluid Balance (Past 24 Hours): I= O= Net Intake & Output 04/18/19 04/19/19 04/20/19 04/21/19 06:59 06:59 06:59 06:59 Intake Total 2067 5490 1670 Output Total 2275 1750 2090 40 Balance -208 3740 -420 -40 Weight 207 lb 3.752 oz 196 lb 3.382 oz Intake: IV Fluids 7 5240 1670 ABX - VANCOMYCIN 517 500 LR 1550 5190 970 NS 50ML, Cefazolin 2G 50 tylenol 200 IVPB 250 ABX - VANCOMYCIN 250 Oral 0 0 Output: DAXA #1 220 295 40 Urine 1125 Burrows 2275 1530 670 Labs: Laboratory Results - last 24 hr 04/19/19 04/19/19 04/20/19 14:38 18:51 08:49 POC Glucose (mg/dL) 157 H 172 H 178 H Studies: Patient Name: ADELA NORTON Medical Record#: [id number] Ordering Physician: Belinda Rendon MD Acct.#: [id number] : 1945 Age: 74 Sex: M Location: SURGICAL STAY UNIT Exam Date: 04/16/197 ADM Status: ADM IN Order Information: SP CERVICAL 2-3 VWS Accession Number: [id number] CPT: 75601 HISTORY: post op COMPARISONS: April 12, 2019 VIEWS: 4, Frontal, and bilateral oblique views of the cervical spine. FINDINGS: Limited frontal and oblique views of the cervical spine. The patient is status post anterior cervical fusion at C5, C6-C7. The alignment of the fusion plate is not well evaluated on the submitted images. There is diffuse uncovertebral and facet osteoarthritis. There is diffuse moderate to severe bilateral neuroforaminal narrowing on the oblique views. There is multilevel anterolateral marginal osteophyte formation. IMPRESSION: LIMITED STUDY. STATUS POST ANTERIOR CERVICAL FUSION. R0 Preliminary Imaging Read R0 Nutrition: Consistent carb Impression: This is a 74 year old male that was referred to [facility] [place] for urgent surgical intervention for loosening of surgical hardware of the c-spine. Diagnoses: 1. Degenerative disk disease with removal of hardware and reinstrumentation of C2-T3 (anterior and posterior approaches) 2/2 hardware failure 2. HTN 3. RA Plan: Neuro - Continue neuro checks Q4h - Ambulating with Lynne Garza at all times - High output on drain, will not remove until tomorrow - Passed swallow eval CV - DC IV lopressor now that patient no longer NPO, started on PO BID - Continue home antihypertensives, DC tele when transferred to floor Resp - No active issues - Continue flutter valve post-op ID - ID following - Tissue and blood cultures NTD - Currently on vanco with mild fevers overnight, however, these are likely reactive 2/2 surgery rather than true fever - Will defer to ID on stopping vanco but would expect it to be DCd today given negative cultures GI - Responded well to decadron IV, transitioned to CC diet Renal - Burrows removed - Follow I&O Heme - DC heparin for now until drainage slows down, had a period of high bloody output last night and this morning Endo - BG stable, continue accuchecks ACHS with lispro SS Musculsk/SKIN - Dressing changes per NS/daily - OOB and ambulate DVT prophylaxis: SCDs and TEDs GI prophylaxis: no indication Central Line: None Arterial Line: Right radial removed 04/19/2019 [place]rows Catheter: Removed 04/19/2019 Disposition: Medically stable for downgrade to surgical floor this afternoon Patient clinical status: Stable Code Status: Full code Total Critical Care time is 30 minutes
[2019-04-20 13:06] LABS: ABS Lymphocytes 0.5 10^3/ul (1.0-4.8); ABS Monocytes 0.6 10^3/ul (0-0.8); ABS Neutrophils 12.2 10^3/ul (1.5-7.7); Hematocrit 35 % (42-52); Hemoglobin 11.8 g/dL (14.0-18.0); Lymphocyte % 3.6 %; Mean Corpuscular HGB Conc 34 g/dL (31-36); Mean Corpuscular Hemoglobin 31 pg (27-31); Mean Corpuscular Volume 89 fL (80-94); Platelet Count 243 10^3/uL (150-450); Red Blood Count 3.86 10^6 /uL (4.18-5.48); Red Cell Distribution Width 14 % (10-15); White Blood Count 13.3 10^3/uL (3.5-10.8)
[2019-04-20 13:23] LABS: BUN/Creatinine Ratio 19.5 (8-20); Calcium 8.4 mg/dL (8.6-10.3); EGFR African American 110.8 (>60); EGFR Non-African American 91.6 (>60); Potassium 3.6 mmol/L (3.5-5.0); Total Bilirubin 0.7 mg/dL (0.2-1.0)
[2019-04-20 14:02] LABS: Albumin 3.4 g/dL (3.2-5.2); Albumin/Globulin Ratio 1.3 (1-3); Globulin 2.7 g/dL (2-4); Total Protein 6.1 g/dL (6.4-8.9)
[2019-04-20] MEDS: Nystatin SUSPENSION* 100000 UNITS/ML 5 ML UDC PO SCH ×3 (14:14→21:21)
[2019-04-20] MEDS: Losartan TAB* 25 MG PO SCH (14:14)
[2019-04-20] MEDS: Allopurinol TAB* 100 MG PO SCH (16:45)
[2019-04-20] MEDS: oxyCODONE TAB* 5 MG TAB PO PRN (21:19)
[2019-04-21] MEDS ORDERED: Vancomycin Trough Check NOTE FOLLOW UP ONE (08:30)
[2019-04-21] MEDS: Nystatin SUSPENSION* 100000 UNITS/ML 5 ML UDC PO SCH ×2 (08:39→12:17)
[2019-04-21] MEDS: Insulin LISPRO* 1 UNITS UNIT SUBCUT SCH ×4 (08:39→21:02)
[2019-04-21] MEDS: Allopurinol TAB* 100 MG PO SCH (08:40)
[2019-04-21] MEDS: Losartan TAB* 25 MG PO SCH (08:40)
[2019-04-21] MEDS: Atorvastatin* 40 MG TAB PO SCH (08:40)
[2019-04-21] MEDS: Metoprolol Tartrate TAB* 50 mg PO SCH ×2 (08:40→21:01)
[2019-04-21 09:17] LABS: ABS Eosinophils 0.1 10^3/ul (0-0.6); ABS Lymphocytes 1.4 10^3/ul (1.0-4.8); ABS Monocytes 0.9 10^3/ul (0-0.8); ABS Neutrophils 9.4 10^3/ul (1.5-7.7); Eosinophil % 0.6 %; Hematocrit 31 % (42-52); Hemoglobin 10.6 g/dL (14.0-18.0); Lymphocyte % 11.8 %; Mean Corpuscular HGB Conc 34 g/dL (31-36); Mean Corpuscular Hemoglobin 31 pg (27-31); Mean Corpuscular Volume 90 fL (80-94); Mean Platelet Volume 8.1 fL (7.4-10.4); Platelet Count 235 10^3/uL (150-450); Red Blood Count 3.48 10^6 /uL (4.18-5.48); Red Cell Distribution Width 15 % (10-15); White Blood Count 11.7 10^3/uL (3.5-10.8)
[2019-04-21 10:01] LABS: Vancomycin Trough 10.5 mcg/mL
[2019-04-21] MEDS: Vancomycin(*) 1,000 MG in NS 0.9% 250 ML* 250 ML IV SCH ×2 (10:07→10:25)
[2019-04-21] MEDS: Vancomycin(*) 1,250 MG in NS 0.9% 250 ML* 250 ML IV SCH ×2 (10:09→22:16)
[2019-04-21 11:02] LABS: Calcium 8.4 mg/dL (8.6-10.3); Potassium 3.7 mmol/L (3.5-5.0)
[2019-04-21 11:07] LABS: BUN/Creatinine Ratio 23.3 (8-20); EGFR African American 104.9 (>60); EGFR Non-African American 86.7 (>60)
--- NOTE | 2019-04-21 12:34 | PN ---
Subjective Date of Service: 04/21/19 Interval History: Pt assessed sitting on edge of bed. Reports he feels well today. Asking for discharge. Reports pain is well controlled. Denies difficulty swallowing. Reports voice is improving. Had BM today. Denies numbness/tingling (with the exception of baseline numbness/tingling in LLE that is patients baseline for 20 yrs), weakness, loss of bowel or bladder control, sob, cough, fever, chills, urinary symptoms. Objective Active Medications: Allopurinol (Zyloprim Tab*) 100 mg PO DAILY [facility] Last Admin: 04/21/19 08:40 Dose: 100 mg Atorvastatin Calcium (Lipitor*) 40 mg PO QAM [facility] Last Admin: 04/21/19 08:40 Dose: 40 mg Dextrose (D50w Syringe 50 Ml*) 12.5 gm IV PUSH .FOR FS < 60 - SS PRN PRN Reason: FS < 60 Hydralazine HCl (Apresoline Iv*) 5 mg IV SLOW PU Q6H PRN PRN Reason: SBP>160 Vancomycin HCl 1,250 mg/ (Sodium Chloride) 250 mls @ 166.667 mls/hr IV Q12H [facility] Last Admin: 04/21/19 10:09 Dose: 166.667 mls/hr Insulin Human Lispro (Humalog*) 0 units SUBCUT ACHS [facility]; Protocol Last Admin: 04/21/19 12:17 Dose: 2 units Losartan Potassium (Cozaar Tab*) 50 mg PO DAILY [facility] Last Admin: 04/21/19 08:40 Dose: 50 mg Magnesium Hydroxide (Milk Of Magnesia Liq*) 30 ml PO DAILY PRN PRN Reason: CONSTIPATION Metoprolol Tartrate (Lopressor Tab*) 50 mg PO Q12HR [facility] Last Admin: 04/21/19 08:40 Dose: 50 mg Morphine Sulfate (Morphine Inj (Syringe))*) 2 mg IV Q4H PRN PRN Reason: PAIN - SEVERE Last Admin: 04/19/19 11:30 Dose: 2 mg Nystatin (Nystatin Suspension*) 200,000 units PO QID [facility] Last Admin: 04/21/19 12:17 Dose: 200,000 units Ondansetron HCl (Zofran Inj*) 4 mg IV Q6H PRN PRN Reason: NAUSEA Oxycodone HCl (Roxycodone Tab*) 5 mg PO Q4H PRN PRN Reason: moderate pain Last Admin: 04/20/19 21:19 Dose: 5 mg Oxycodone HCl (Roxycodone Tab*) 10 mg PO Q4H PRN PRN Reason: PAIN - SEVERE Last Admin: 04/18/19 18:28 Dose: 10 mg Pharmacy Consult (Vancomycin Per Pharmacy*) 1 note FOLLOW UP .VANC PER PHARMACY [facility]; Protocol Vital Signs - 8 hr 04/21/19 04/21/19 07:19 08:00 Temperature 98.8 F Pulse Rate 65 Respiratory 19 19 Rate Blood Pressure 151/74 (mmHg) O2 Sat by Pulse 98 98 Oximetry Oxygen Devices in Use Now: None Appearance: Comfortable, NAD Eyes: No Scleral Icterus Ears/Nose/Mouth/Throat: Clear Oropharnyx, - - Tongue whitish yellow. Reports this is from nystatin Neck: - - [place] J in place Respiratory: Symmetrical Chest Expansion and Respiratory Effort, Clear to Auscultation Cardiovascular: NL Sounds; No Murmurs; No JVD, RRR, No Edema Abdominal: NL Sounds; No Tenderness; No Distention Extremities: No Edema Skin: No Rash or Ulcers Neurological: Alert and Oriented x 3, NL Muscle Strength and Tone Nutrition: Taking PO's Result Diagrams: 04/21/19 08:23 04/21/19 08:25 Additional Lab and Data: Laboratory Results - last 24 hr 04/20/19 04/20/19 04/20/19 00:03 03:12 04:45 WBC RBC Hgb Hct MCV MCH MCHC RDW Plt Count MPV Neut % (Auto) Lymph % (Auto) [place] % (Auto) Eos % (Auto) Baso % (Auto) Absolute Neuts (auto) Absolute Lymphs (auto) Absolute Monos (auto) Absolute Eos (auto) Absolute Basos (auto) Absolute Nucleated RBC Nucleated RBC % Sodium Potassium Chloride Carbon Dioxide Anion Gap BUN Creatinine Est GFR ( Amer) Est GFR (Non-Af Amer) BUN/Creatinine Ratio Glucose POC Glucose (mg/dL) 161 H 195 H 191 H Calcium Total Bilirubin AST ALT Alkaline Phosphatase Total Protein Albumin Globulin Albumin/Globulin Ratio Vancomycin Trough 04/20/19 04/20/19 04/20/19 12:48 12:48 12:51 WBC 13.3 H RBC 3.86 L Hgb 11.8 L Hct 35 L MCV 89 MCH 31 MCHC 34 RDW 14 Plt Count 243 MPV 8.0 Neut % (Auto) 91.7 Lymph % (Auto) 3.6 Benzie % (Auto) 4.5 Eos % (Auto) 0.0 Baso % (Auto) 0.2 Absolute Neuts (auto) 12.2 H Absolute Lymphs (auto) 0.5 L Absolute Monos (auto) 0.6 Absolute Eos (auto) 0.0 Absolute Basos (auto) 0.0 Absolute Nucleated RBC 0.0 Nucleated RBC % 0.0 Sodium 133 L Potassium 3.6 Chloride 101 Carbon Dioxide 24 Anion Gap 8 BUN 16 Creatinine 0.82 Est GFR ( Amer) 110.8 Est GFR (Non-Af Amer) 91.6 BUN/Creatinine Ratio 19.5 Glucose 182 H POC Glucose (mg/dL) 195 H Calcium 8.4 L Total Bilirubin 0.70 AST 29 ALT 17 Alkaline Phosphatase 52 Total Protein 6.1 L Albumin 3.4 Globulin 2.7 Albumin/Globulin Ratio 1.3 Vancomycin Trough 04/20/19 04/20/19 04/21/19 16:28 21:01 07:21 WBC RBC Hgb Hct MCV MCH MCHC RDW Plt Count MPV Neut % (Auto) Lymph % (Auto) Benzie % (Auto) Eos % (Auto) Baso % (Auto) Absolute Neuts (auto) Absolute Lymphs (auto) Absolute Monos (auto) Absolute Eos (auto) Absolute Basos (auto) Absolute Nucleated RBC Nucleated RBC % Sodium Potassium Chloride Carbon Dioxide Anion Gap BUN Creatinine Est GFR ( Amer) Est GFR (Non-Af Amer) BUN/Creatinine Ratio Glucose POC Glucose (mg/dL) 211 H 188 H 140 H Calcium Total Bilirubin AST ALT Alkaline Phosphatase Total Protein Albumin Globulin Albumin/Globulin Ratio Vancomycin Trough 04/21/19 04/21/19 04/21/19 08:23 08:25 11:59 WBC 11.7 H RBC 3.48 L Hgb 10.6 L Hct 31 L MCV 90 MCH 31 MCHC 34 RDW 15 Plt Count 235 MPV 8.1 Neut % (Auto) 79.5 Lymph % (Auto) 11.8 Benzie % (Auto) 8.0 Eos % (Auto) 0.6 Baso % (Auto) 0.1 Absolute Neuts (auto) 9.4 H Absolute Lymphs (auto) 1.4 Absolute Monos (auto) 0.9 H Absolute Eos (auto) 0.1 Absolute Basos (auto) 0.0 Absolute Nucleated RBC 0.0 Nucleated RBC % 0.0 Sodium 139 Potassium 3.7 Chloride 104 Carbon Dioxide 26 Anion Gap 9 BUN 20 Creatinine 0.86 Est GFR ( Amer) 104.9 Est GFR (Non-Af Amer) 86.7 BUN/Creatinine Ratio 23.3 H Glucose 116 H POC Glucose (mg/dL) 172 H Calcium 8.4 L Total Bilirubin AST ALT Alkaline Phosphatase Total Protein Albumin Globulin Albumin/Globulin Ratio Vancomycin Trough 10.5 Microbiology and Other Data: Microbiology 04/16/19 16:21 Anaerobic Culture - Final Wound No Growth Day 4 Gram Stain - Final Wound Culture - Final No Growth Day 4 04/16/19 16:21 Wound Gram Stain - Final Tissue Tissue Culture - Final No Growth Day 4 04/16/19 20:22 Nasal Screen MRSA (PCR) - Final Nasal Mrsa Not Detected Assess/Plan/Problems-Billing Mr Kramer is a 74 yo M who presented to the ER at the recommendation of Dr Monet for loosening of his cervical hardware. 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 - [place] J in place - Drain in place and draining small amount of SS drainage - Observed dressing being changed and incision appears benign - Cont neuro checks - Management per Neurosurg (3) HTN (hypertension) Comment: - Cont Metoprolol (4) Fever Comment: - Last slightly elevated temp 04/19/19 of 100.1. Has been afebrile since that time - On Vanc - Wound/Tissue cultures negative - WBC trending down (5) Thrush Comment: - Requesting Nystatin be discontinued as he has no pain and it is coating tongue - Change to PRN - Monitor (6) DVT prophylaxis Comment: - SCDs (7) Full code status Attending: Faustino Fried
[2019-04-21] MEDS ORDERED: Nystatin SUSPENSION* 100000 UNITS/ML 5 ML UDC PO PRN (13:11)
[2019-04-22 06:32] LABS: ABS Eosinophils 0.3 10^3/ul (0-0.6); ABS Lymphocytes 1.9 10^3/ul (1.0-4.8); ABS Monocytes 0.7 10^3/ul (0-0.8); ABS Neutrophils 4.4 10^3/ul (1.5-7.7); Eosinophil % 4.5 %; Hematocrit 30 % (42-52); Hemoglobin 10.3 g/dL (14.0-18.0); Lymphocyte % 25.5 %; Mean Corpuscular HGB Conc 35 g/dL (31-36); Mean Corpuscular Hemoglobin 31 pg (27-31); Mean Corpuscular Volume 89 fL (80-94); Mean Platelet Volume 7.6 fL (7.4-10.4); Nucleated Red Blood Cells % 0.1; Platelet Count 234 10^3/uL (150-450); Red Blood Count 3.33 10^6 /uL (4.18-5.48); Red Cell Distribution Width 14 % (10-15); White Blood Count 7.4 10^3/uL (3.5-10.8)
[2019-04-22 06:50] LABS: BUN/Creatinine Ratio 18.5 (8-20); Calcium 8.2 mg/dL (8.6-10.3); EGFR Non-African American 80.2 (>60); Potassium 3.5 mmol/L (3.5-5.0)
--- NOTE | 2019-04-22 09:25 | PN ---
Progress Note - Progress Note Date of Service: 04/22/19 SOAP: Subjective: CC: Suspected C-spine infection HPI: Mr. 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 Presented to the hospital with C-spine hardware failure. Denies fever, chills, nausea, vomiting, or diarrhea. He reports neck discomfort, that is improved with pain medication. He is anxious for discharge to home. Objective: Vital Signs - 8 hr 04/22/19 04/22/19 04/22/19 04:01 07:35 07:36 Temperature 97.6 F 98.3 F Pulse Rate 66 64 Respiratory 16 16 18 Rate Blood Pressure 143/76 145/69 (mmHg) O2 Sat by Pulse 98 97 Oximetry Physical Exam: General: NAD, laying in bed Neurological: Alert and Oriented HEENT: Moist MM, no thrush Cardiovascular: Heart rate regular Respiratory: Lung sounds clear Abdominal: Bowel sounds present; ABD soft, non tender and non distended MSK: ROBERTS. No tenderness with palpation of the back and spine Skin: No rash. DSG to anterior neck clean, dry and intact. DSG to posterior neck with small amount of serous drainage Laboratory Results - last 24 hr 04/21/19 04/21/19 04/21/19 08:25 11:59 16:42 Sodium 139 Potassium 3.7 Chloride 104 Carbon Dioxide 26 Anion Gap 9 BUN 20 Creatinine 0.86 Est GFR ( Amer) 104.9 Est GFR (Non-Af Amer) 86.7 BUN/Creatinine Ratio 23.3 H Glucose 116 H POC Glucose (mg/dL) 172 H 112 H Calcium 8.4 L Vancomycin Trough 10.5 04/21/19 04/22/19 04/22/19 20:43 06:09 06:09 WBC 7.4 RBC 3.33 L Hgb 10.3 L Hct 30 L MCV 89 MCH 31 MCHC 35 RDW 14 Plt Count 234 MPV 7.6 Neut % (Auto) 59.9 Lymph % (Auto) 25.5 [place] % (Auto) 9.6 Eos % (Auto) 4.5 Baso % (Auto) 0.5 Absolute Neuts (auto) 4.4 Absolute Lymphs (auto) 1.9 Absolute Monos (auto) 0.7 Absolute Eos (auto) 0.3 Absolute Basos (auto) 0.0 Absolute Nucleated RBC 0.0 Nucleated RBC % 0.1 Sodium 137 Potassium 3.5 Chloride 104 Carbon Dioxide 27 Anion Gap 6 BUN 17 Creatinine 0.92 Est GFR ( Amer) 97.0 Est GFR (Non-Af Amer) 80.2 BUN/Creatinine Ratio 18.5 Glucose 100 POC Glucose (mg/dL) 160 H Calcium 8.2 L Microbiology 04/16/19 16:21 Anaerobic Culture - Final Wound No Growth Day 4 Gram Stain - Final Wound Culture - Final No Growth Day 4 04/16/19 16:21 Wound Gram Stain - Final Tissue Tissue Culture - Final No Growth Day 4 04/16/19 20:22 Nasal Screen MRSA (PCR) - Final Nasal Mrsa Not Detected Assessment: 1. 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 Per Dr. Monet noted to have possible spinal abscess when he preformed revision on 04/16/19. No sign of infection noted during the posterior procedure per Dr. Monet. Cultures with no growth to date. Afebrile and no leukocytosis (note to have leukocytosis over the weekend that has since resolved). CRP/ESR normal at last check. Plan: Continue Vancomycin, trough 15-20. In the setting of a possible C-spine infection, will plan on an extended course of IV ABX. Day . Will need to have a PICC line placed. DISCHARGE PLAN: Vancomycin 1,250 mg IV Q 12H. Weekly labs while on IV ABX: CBC, CMP, and CRP. Followup with ID outpatient. 25 minutes floor time: > 50% spent with patient discussing home IV ABX, need for PICC line placement, when to call the office (Fever, rash, or diarrhea) and followup
[2019-04-22] MEDS ORDERED: NS 0.9% 250 ML* 250 ML ONE (09:31)
[2019-04-22] MEDS: Losartan TAB* 25 MG PO SCH (09:45)
[2019-04-22] MEDS: Atorvastatin* 40 MG TAB PO SCH (09:45)
[2019-04-22] MEDS: Allopurinol TAB* 100 MG PO SCH (09:45)
[2019-04-22] MEDS: Metoprolol Tartrate TAB* 50 mg PO SCH (09:46)
[2019-04-22] MEDS: Vancomycin(*) 1,250 MG in NS 0.9% 250 ML* 250 ML IV SCH (09:47)
--- NOTE | 2019-04-22 10:01 | PN ---
Subjective Date of Service: 04/22/19 Interval History: Patient was in good spirits, stating that his pain is well controlled with tylenol, does not wish to use any narcotics. Pain to neck currently is 4/10 with no radiating numbness or tingling. Darwin drain in place at the moment draining cloudy light hernandez red fluid. Denies lightheadedness, dizziness, chest pain, palpitations, abdominal pain, nausea or vomiting, or issues moving bowels or bladder. Family History: Unchanged from Admission Social History: Unchanged from Admission Past Medical History: Unchanged from Admission Objective Active Medications: Allopurinol (Zyloprim Tab*) 100 mg PO DAILY [facility] Last Admin: 04/22/19 09:45 Dose: 100 mg Atorvastatin Calcium (Lipitor*) 40 mg PO QAM [facility] Last Admin: 04/22/19 09:45 Dose: 40 mg Dextrose (D50w Syringe 50 Ml*) 12.5 gm IV PUSH .FOR FS < 60 - SS PRN PRN Reason: FS < 60 Hydralazine HCl (Apresoline Iv*) 5 mg IV SLOW PU Q6H PRN PRN Reason: SBP>160 Vancomycin HCl 1,250 mg/ (Sodium Chloride) 250 mls @ 166.667 mls/hr IV Q12H [facility] Last Admin: 04/22/19 09:47 Dose: 166.667 mls/hr Insulin Human Lispro (Humalog*) 0 units [facility]; Protocol Last Admin: 04/21/19 21:02 Dose: 2 units Losartan Potassium (Cozaar Tab*) 50 mg PO DAILY [facility] Last Admin: 04/22/19 09:45 Dose: 50 mg Magnesium Hydroxide (Milk Of Magnesia Liq*) 30 ml PO DAILY PRN PRN Reason: CONSTIPATION Metoprolol Tartrate (Lopressor Tab*) 50 mg PO Q12HR [facility] Last Admin: 04/22/19 09:46 Dose: 50 mg Morphine Sulfate (Morphine Inj (Syringe))*) 2 mg IV Q4H PRN PRN Reason: PAIN - SEVERE Last Admin: 04/19/19 11:30 Dose: 2 mg Nystatin (Nystatin Suspension*) 200,000 units PO QID PRN PRN Reason: SORE THROAT Ondansetron HCl (Zofran Inj*) 4 mg IV Q6H PRN PRN Reason: NAUSEA Oxycodone HCl (Roxycodone Tab*) 5 mg PO Q4H PRN PRN Reason: moderate pain Last Admin: 04/20/19 21:19 Dose: 5 mg Oxycodone HCl (Roxycodone Tab*) 10 mg PO Q4H PRN PRN Reason: PAIN - SEVERE Last Admin: 04/18/19 18:28 Dose: 10 mg Pharmacy Consult (Vancomycin Per Pharmacy*) 1 note FOLLOW UP .VANC PER PHARMACY CATHER[facility]; Protocol Vital Signs - 8 hr 04/22/19 04/22/19 04/22/19 04:01 07:35 07:36 Temperature 97.6 F 98.3 F Pulse Rate 66 64 Respiratory 16 16 18 Rate Blood Pressure 143/76 145/69 (mmHg) O2 Sat by Pulse 98 97 Oximetry Oxygen Devices in Use Now: None Appearance: This is a well developed gentleman seen sitting up in a chair, no acute distress noted. Eyes: No Scleral Icterus, PERRLA Ears/Nose/Mouth/Throat: NL Teeth, Lips, Gums, Mucous Membranes Moist Neck: NL Appearance and Movements; NL JVP, Trachea Midline, - - [place] j collar in place. Respiratory: Symmetrical Chest Expansion and Respiratory Effort, Clear to Auscultation Cardiovascular: NL Sounds; No Murmurs; No JVD, No Edema Abdominal: NL Sounds; No Tenderness; No Distention, No Hepatosplenomegaly Extremities: No Edema, No Clubbing, Cyanosis Skin: No Rash or Ulcers Neurological: Alert and Oriented x 3 Lines/Tubes/Other Access: Clean, Dry and Intact Peripheral IV, Clean, Dry and Intact Other Access - Darwin drain to right neck. Result Diagrams: 04/22/19 06:09 04/22/19 06:09 Additional Lab and Data: Laboratory Results - last 24 hr 04/20/19 04/20/19 04/20/19 00:03 03:12 04:45 WBC RBC Hgb Hct MCV MCH MCHC RDW Plt Count MPV Neut % (Auto) Lymph % (Auto) Saunders % (Auto) Eos % (Auto) Baso % (Auto) Absolute Neuts (auto) Absolute Lymphs (auto) Absolute Monos (auto) Absolute Eos (auto) Absolute Basos (auto) Absolute Nucleated RBC Nucleated RBC % Sodium Potassium Chloride Carbon Dioxide Anion Gap BUN Creatinine Est GFR ( Amer) Est GFR (Non-Af Amer) BUN/Creatinine Ratio Glucose POC Glucose (mg/dL) 161 H 195 H 191 H Calcium Total Bilirubin AST ALT Alkaline Phosphatase Total Protein Albumin Globulin Albumin/Globulin Ratio Vancomycin Trough 04/20/19 04/20/19 04/20/19 12:48 12:48 12:51 WBC 13.3 H RBC 3.86 L Hgb 11.8 L Hct 35 L MCV 89 MCH 31 MCHC 34 RDW 14 Plt Count 243 MPV 8.0 Neut % (Auto) 91.7 Lymph % (Auto) 3.6 Saunders % (Auto) 4.5 Eos % (Auto) 0.0 Baso % (Auto) 0.2 Absolute Neuts (auto) 12.2 H Absolute Lymphs (auto) 0.5 L Absolute Monos (auto) 0.6 Absolute Eos (auto) 0.0 Absolute Basos (auto) 0.0 Absolute Nucleated RBC 0.0 Nucleated RBC % 0.0 Sodium 133 L Potassium 3.6 Chloride 101 Carbon Dioxide 24 Anion Gap 8 BUN 16 Creatinine 0.82 Est GFR ( Amer) 110.8 Est GFR (Non-Af Amer) 91.6 BUN/Creatinine Ratio 19.5 Glucose 182 H POC Glucose (mg/dL) 195 H Calcium 8.4 L Total Bilirubin 0.70 AST 29 ALT 17 Alkaline Phosphatase 52 Total Protein 6.1 L Albumin 3.4 Globulin 2.7 Albumin/Globulin Ratio 1.3 Vancomycin Trough 04/20/19 04/20/19 04/21/19 16:28 21:01 07:21 WBC RBC Hgb Hct MCV MCH MCHC RDW Plt Count MPV Neut % (Auto) Lymph % (Auto) Saunders % (Auto) Eos % (Auto) Baso % (Auto) Absolute Neuts (auto) Absolute Lymphs (auto) Absolute Monos (auto) Absolute Eos (auto) Absolute Basos (auto) Absolute Nucleated RBC Nucleated RBC % Sodium Potassium Chloride Carbon Dioxide Anion Gap BUN Creatinine Est GFR ( Amer) Est GFR (Non-Af Amer) BUN/Creatinine Ratio Glucose POC Glucose (mg/dL) 211 H 188 H 140 H Calcium Total Bilirubin AST ALT Alkaline Phosphatase Total Protein Albumin Globulin Albumin/Globulin Ratio Vancomycin Trough 04/21/19 04/21/19 04/21/19 08:23 08:25 11:59 WBC 11.7 H RBC 3.48 L Hgb 10.6 L Hct 31 L MCV 90 MCH 31 MCHC 34 RDW 15 Plt Count 235 MPV 8.1 Neut % (Auto) 79.5 Lymph % (Auto) 11.8 Saunders % (Auto) 8.0 Eos % (Auto) 0.6 Baso % (Auto) 0.1 Absolute Neuts (auto) 9.4 H Absolute Lymphs (auto) 1.4 Absolute Monos (auto) 0.9 H Absolute Eos (auto) 0.1 Absolute Basos (auto) 0.0 Absolute Nucleated RBC 0.0 Nucleated RBC % 0.0 Sodium 139 Potassium 3.7 Chloride 104 Carbon Dioxide 26 Anion Gap 9 BUN 20 Creatinine 0.86 Est GFR ( Amer) 104.9 Est GFR (Non-Af Amer) 86.7 BUN/Creatinine Ratio 23.3 H Glucose 116 H POC Glucose (mg/dL) 172 H Calcium 8.4 L Total Bilirubin AST ALT Alkaline Phosphatase Total Protein Albumin Globulin Albumin/Globulin Ratio Vancomycin Trough 10.5 Microbiology and Other Data: Microbiology 04/16/19 16:21 Anaerobic Culture - Final Wound No Growth Day 4 Gram Stain - Final Wound Culture - Final No Growth Day 4 04/16/19 16:21 Wound Gram Stain - Final Tissue Tissue Culture - Final No Growth Day 4 04/16/19 20:22 Nasal Screen MRSA (PCR) - Final Nasal Mrsa Not Detected Assess/Plan/Problems-Billing Mr Kramer is a 74 yo M who presented to the ER at the recommendation of Dr Monet for loosening of his cervical hardware. 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 - [place] J in place - Drain in place and draining cloudy, light hernandez red fluid. Will check with Dr. Juarez about removal. - Observed dressing being changed and incision appears benign - Cont neuro checks - Management per Neurosurg (2) HLD (hyperlipidemia) Current Visit: Yes Status: Acute Code(s): E78.5 - HYPERLIPIDEMIA, UNSPECIFIED SNOMED Code(s): 91057648 Comment: - Continue lipitor. (3) HTN (hypertension) Current Visit: Yes Status: Acute Code(s): I10 - ESSENTIAL (PRIMARY) HYPERTENSION SNOMED Code(s): 66114423 Comment: - Cont Metoprolol and losartan. Blood pressures have averaged in the 140's systolically. (4) Leukocytosis Current Visit: Yes Status: Acute Code(s): D72.829 - ELEVATED WHITE BLOOD CELL COUNT, UNSPECIFIED SNOMED Code(s): 797131210 Comment: - Possible c-spine infection. - No fever since 04/18 - WBC trending down - Currently on Vanco, on day per ID. Ordered PICC line placement. Will require wekly CBC, CMP, CRP while on therapy. - Management per ID (5) Rheumatoid arthritis Current Visit: Yes Status: Acute Code(s): M06.9 - RHEUMATOID ARTHRITIS, UNSPECIFIED SNOMED Code(s): 59637816 Comment: -Continue supportive measures. (6) Gout Current Visit: Yes Status: Acute Code(s): M10.9 - GOUT, UNSPECIFIED SNOMED Code(s): 83535715 Comment: -Continue allopurinol. (7) DVT prophylaxis Current Visit: Yes Status: Acute Code(s): Z29.9 - ENCOUNTER FOR PROPHYLACTIC MEASURES, UNSPECIFIED SNOMED Code(s): 613696561 Comment: - SCDs (8) Full code status Current Visit: Yes Status: Acute Code(s): Z78.9 - OTHER SPECIFIED HEALTH STATUS SNOMED Code(s): 980466739 Status and Disposition: Condition: Fair Dispo: Admit inpatient [facility] Attending: Faustino Fried
[2019-04-22] MEDS: oxyCODONE TAB* 5 MG TAB PO PRN (10:06)
[2019-04-22] MEDS: Insulin LISPRO* 1 UNITS UNIT SUBCUT SCH ×3 (10:19→17:46)
[2019-04-22 16:53] VITALS: BP 136/69
[2019-04-22] MEDS ORDERED: Vancomycin(*) 1,250 MG in NS 0.9% 250 ML* 250 ML IV SCH ×2 (18:00→22:00)
--- NOTE | 2019-04-23 02:37 | DS ---
DISCHARGE SUMMARY: DATE OF ADMISSION: 04/16/19. DATE OF DISCHARGE: 04/22/19. PROVIDER: Shannan Winchester NP. ATTENDING PHYSICIAN: Dr. Fried * (DICTATED BY SHANNAN WINCHESTER NP) PRIMARY CARE PROVIDER: Dr. Montano. CONSULTING PHYSICIAN: Dr. Monet. PRIMARY DIAGNOSIS: 1. Status post revision of anterior cervical corpectomy at C6, replacement of corpectomy cage, arthrodesis C5 to C7 with DBX and PEEK interbody cage, replacement of anterior plate within. 2. Hardware failure and possible spinal abscess noted intraoperatively at C- spine. SECONDARY DIAGNOSES: 1. Hypertension. 2. Hyperlipidemia. 3. Gout. 4. Vitamin D deficiency. 5. Rheumatoid arthritis. PROCEDURES: On 04/16/19, he underwent posterior cervical instrumentation and arthrodesis of C2 through T3 with C2 bilateral pedicular screws; C3, C4, C5, and C6 bilateral lateral mass screws, T1, T2, and T3 bilateral pedicle screws with partial fasciotomies, arthrodesis with DBX putty, cancellous chips, intraoperative monitoring, and intraoperative navigation. DIAGNOSTIC STUDIES: CT of the cervical spine without contrast showed that the patient had undergone corpectomy of C6, replacement of bone graft. Plain film study of 04/12/19 showed: 1. Anterior displacement of the inferior plate from the anterior bony cortex of C7, the significance of this finding is unclear. His may be related to the placement of bone graft. There is bone lucency surrounding the superior and inferior screws raising the concern of movement. 2. Multilevel degenerative cervical disc disease and facet disease, no significant real central canal stenosis,variable degrees of neural foraminal narrowing secondary to degenerative changes of the unconvertible joints and facet joints and 3.4 mm hypodensity located in the left thyroid lobe. This does not require further assessment. Chest x-ray on 04/16/19, showed hyperinflation consistent with COPD and no active cardiopulmonary disease. On 04/16/19 cervical spine x-rays showed limited study status post anterior cervical fusion. On 04/19/19, swallowing function showed aspiration noted, failure of relaxation of cricopharyngeus. On 04/19/19, cervical spine x-ray showed anterior and posterior fusion. Posterior fusion from at least C2 to T3. Brain CT without contrast on 04/19/19 showed stable age-related diffuse cerebral volume loss and chronic microvascular ischemic changes and no acute intracranial pathology. PERTINENT LABORATORY DATA: RBC 3.33, hemoglobin 10.6, hematocrit 30. HISTORY OF PRESENT ILLNESS/HOSPITAL COURSE: This is a 74-year-old male with a past medical history significant for hypertension, cervical spinal stenosis, who came to the emergency room on 04/16/19 due to known loosening of the hardware in his C- spine. Originally, he had had a cervical spine x-ray on 07/26 and was instructed to come to the ER and then ultimately signed out against medical advise because he originally did not want to stay in the hospital for 4 days to wait for surgery. He then came back after wearing his [place] J collar through the weekend. He was feeling fine but he had concern due to loosening of the hardware which is why he came back to the emergency room. Originally, the patient has had an anterior cervical corpectomy at C6 and C5 to 7 anterior arthrodesis with PEEK interbody cage in January 2019. The patient was taken to surgery on 04/16/[address] Monet and during his revision, Dr. Monet saw some tissue that was reflective of either purulent drainage or inflammatory changes in the soft tissue and cultures were obtained. There has been no growth of bacteria thus far. However, the patient over the next 2 days had low-grade fever as high as 100.4 and had leukocytosis as high as 13.3. Infectious Disease was consulted and was placed on vancomycin. The patient spent next few days in the ICU recovering. He had a brief period of disorientation on 04/19/[address] and had a brain CT to ensure no changes and there was no acute pathology found. There was also a concern about his ability to swallow. Therefore, a swallowing evaluation was ordered with Speech Therapy. There was noted to be some degree of dysphagia, however, the next day, he was able to tolerate regular consistency meals without any difficulty and has been eating well since with no evidence of chocking or coughing after thin liquids or food. He was transferred out of the ICU on 04/21/19 and has continued to do well. DAXA drain was draining cloudy hernandez red fluid. Voice quality was improving had initially been hoarse, but becoming easier to understand. On the day of discharge, he was anxious to go home. He had been compliant with wearing the [place] J collar at all times. His pain was under control with Tylenol. Stated that he is not interested in taking narcotics if he were able to avoid them. DAXA drain was removed and a dressing placed over the insertion site. The incision itself was well approximated without any redness, swelling or drainage. He was able to ambulate without difficulty and PICC line was placed for his intermediate designer antibiotics as per Infectious Disease. REVIEW OF SYSTEMS: A 12-point system review was performed, which was positive for anterior neck pain, hoarse voice, and negative for lightheadedness, dizziness, chest pain, shortness of breath, abdominal pain, nausea, vomiting, issues moving his bowels or bladder. PHYSICAL EXAMINATION: Vital Signs: 98.4 Fahrenheit, 72 pulse, 16 respirations , 98% oxygen on room air, 136/69 blood pressure. General: This is a well- developed gentleman seen sitting up in chair, in no acute distress noted. HEENT : Conjunctivae pink and moist. PERRLA. EOMs intact. Oropharynx clear. Mucous membranes were moist. Neck: [place] J-Collar in place. Dressing to anterior neck, clean, dry and intact. Cardiac: S1, S2 present. Heart rate regular with no murmurs, gallops or rubs appreciated. Lung sounds clear throughout bilaterally on room air. No accessory muscle use noted. Abdomen: Soft, nontender, nondistended with positive bowel sounds x4. Musculoskeletal: No clubbing or cyanosis of the digits. 2+ positive pedal and radial pulses. Hand grasps equal. No arm drift. Skin: DAXA drain removed. Old insertion site benign. Incision to posterior neck and upper back is well approximated. Sutures are intact with no erythema or drainage noted. Neuro: Baseline numbness and tingling to bilateral hands. No other focal deficits appreciated. Psych: He is alert and oriented x4. Thought content organized. DISCHARGE PLAN: He is to go home with a consistent-carb diet, encouraged to keep fluids on the softer side and to keep liquids near him to assist with swallowing. As far as activities goes, he is to avoid bending, lifting or straining. He is able to climb stairs and walk as his energy level is tolerated though he is not to drive. He is to return to the emergency room should he develop any chest pain, shortness of breath or increasing numbness or tingling or weakness in either one of his extremities. He is also to monitor for signs and symptoms and infection, which include fever of 101 degrees or higher orally. Skin around his incision should turn bright red, hot to touch or swollen or if it begins to drain blood or thick rodriguez yellow fluid. PLAN FOR EACH CONDITION: 1. Status post revision of his ACDF. He is not to submerge the incision in either pools, bath or hot tubs though he may shower daily. He is to change the dressing once daily for the next 2 days with dry sterile dressing, may leave open to air up to two days if there is no drainage. He is to wear the [place] J collar on at all times though he may remove it briefly for showering. He is to follow up with Dr. Monet within the next 7 to 10 days. For pain control, he can use Tylenol every 4 hours as needed and for stronger pain, he has been ordered a small supply of oxycodone. The prescription monitoring program was consulted with reference number of [id number]. Did note that he had a 1 month supply of hydrocodone that was ordered in January. I felt comfortable with ordering him a 5-day supply of oxycodone. 2. Possible spinal abscess. His cultures have not come back positive for any growth. However, he did have episode of leukocytosis and low-grade fevers over the weekend. Per Infectious Disease, he is to continue vancomycin for a total of 66 days and he is on day#5 today. He is to get weekly labs, CBC, CMP, CRP that is to be drawn by his visiting nurse services who will also help manage his weekly PICC line dressing and other PICC line producer needs. 3. Hyperlipidemia. He is to continue his atorvastatin. 4. Hypertension. He can continue Losartan/hydrochlorothiazide and metoprolol. 5. Gout. He may continue with his allopurinol. NEW MEDICATIONS UPON DISCHARGE: 1. Oxycodone 5 mg p.o. q. 6 hours p.r.n. max daily dose of 4 with a total of 20 tabs. 2. Vancomycin as per Infectious Disease with heparin flush as per protocol. Medications to continue upon discharge: 1. Atorvastatin 40 mg p.o. q.a.m. 2. Aspirin 81 mg p.o. q.a.m. 3. Allopurinol 100 mg p.o. q.a.m. 4. Metoprolol succinate 100 mg p.o. q.a.m. 5. Losartan/hydrochlorothiazide 100-25 one tab p.o. q.a.m. 6. Cholecalciferol 5000 units p.o. q.a.m. CONDITION UPON DISCHARGE: Stable. DISPOSITION: To home. TIME SPENT: Time spent on the patient is about 60 minutes with 35 minutes of that spent face to face. SHANNAN WINCHESTER, ACTUARIAL ASSISTANT [id number]/[facility] #: [id number] MTDKaren
[2019-04-23] MEDS ORDERED: Vancomycin Trough Check NOTE FOLLOW UP ONE (05:30)
== END 2019-04-22 19:48 | disposition home or self-care (01) | DRG 454 ==
LOC: ED 18:41 → SSU 04-16 02:19 → ICU 04-16 20:15 → SSU 04-17 09:32 → ICU 04-18 16:06 → SSU 04-20 11:56
PROVIDERS: ADMIT Nurse Practitioner Family; ATTEND Internal Medicine
PROC: 0RG10A0 Fusion of Cervical Vertebral Joint with Interbody Fusion Device, Anterior Approach, Anterior Column, Open Approach (ICD-10-PCS; 2019-04-16)
PROC: 0RP10AZ Removal of Interbody Fusion Device from Cervical Vertebral Joint, Open Approach (ICD-10-PCS; principal; 2019-04-16 14:00)
PROC: 0RG20K1 Fusion of 2 or more Cervical Vertebral Joints with Nonautologous Tissue Substitute, Posterior Approach, Posterior Column, Open Approach (ICD-10-PCS; 2019-04-18)
PROC: 0RG70K1 Fusion of 2 to 7 Thoracic Vertebral Joints with Nonautologous Tissue Substitute, Posterior Approach, Posterior Column, Open Approach (ICD-10-PCS; 2019-04-18)
PROC: 0RG40K1 Fusion of Cervicothoracic Vertebral Joint with Nonautologous Tissue Substitute, Posterior Approach, Posterior Column, Open Approach (ICD-10-PCS; 2019-04-18)
PROC: 4A11X4G Monitoring of Peripheral Nervous Electrical Activity, Intraoperative, External Approach (ICD-10-PCS; 2019-04-18)
PROC: 05HY33Z Insertion of Infusion Device into Upper Vein, Percutaneous Approach (ICD-10-PCS; 2019-04-22)
DX: T84.226A Displacement of internal fixation device of vertebrae, initial encounter (principal); M96.0 Pseudarthrosis after fusion or arthrodesis; M50.00 Cervical disc disorder with myelopathy, unspecified cervical region; B37.0 Candidal stomatitis; M46.22 Osteomyelitis of vertebra, cervical region; Z80.8 Family history of malignant neoplasm of other organs or systems; I10 Essential (primary) hypertension; E78.00 Pure hypercholesterolemia, unspecified; M10.9 Gout, unspecified; M21.372 Foot drop, left foot; M06.9 Rheumatoid arthritis, unspecified; E78.5 Hyperlipidemia, unspecified; E55.9 Vitamin D deficiency, unspecified; R41.0 Disorientation, unspecified; R00.0 Tachycardia, unspecified; R13.10 Dysphagia, unspecified; D72.829 Elevated white blood cell count, unspecified; Z79.82 Long term (current) use of aspirin; Z79.899 Other long term (current) drug therapy; Z82.49 Family history of ischemic heart disease and other diseases of the circulatory system
CPT/HCPCS: 36415; 70450; 71046; 72040; 72125; 74230; 76000; 80048; 80051; 80053; 80202; 82803; 82947; 85014; 85018; 85025; 85610; 85652; 86140; 86850; 86900; 86901; 87070; 87073; 87205; 87641; 88300; 93005; 95940; 99284; A9270-GY; C1713; C1751; C1776; C9359; J0330; J0360; J0690; J1100; J1170; J1644; J2001; J2250; J2270; J2405; J2704; J2765; J3010; J3370; J3490